=== PATIENT | male | born 1995 | race Caucasian/White ===

== ENCOUNTER 2018-07-01 14:33 | Inpatient (IN) | payer OTHER ==
[2018-07-01 16:41] VITALS: BMI 27.8
--- NOTE | 2018-07-01 18:31 | HP ---
CIWA Score - CIWA Score Nausea/Vomitin Muscle Tremors: 2 Anxiety: 4-Mod. Anxious/Guarded Agitation: 1-Slight > Activity Paroxysmal Sweats: 4-Forehead w/Sweat Beads Orientation: 0-Oriented Tacttile Disturbances: 1-Very Mild Itch/Numbness Auditory Disturbances: 0-None Visual Disturbances: 0-None Headache: 0-None Present CIWA-Ar Total Score: 15 Admission ROS S - HPI Chief Complaint: " I need help" benzodiazepine withdrawal symptoms Allergies/Adverse Reactions: Allergies Allergy/AdvReac Type Severity Reaction Status Date / Time acetaminophen Allergy Verified 07/01/18 18:17 History of Present Illness: 22 yo male with hx of nicotine, opioid, Xanax, marijuana dependence is here seeking detox. Patient is linked to Suboxone program: [facility] [address] Delmar Lira. PMHX: ADHD, anxiety, depression, borderline personality disorder. Denies suicidal / homicidal ideation or hx suicide attempt. Reports was in [facility] ED one week ago for panic attack after loosing his place of residence, was treated with 2mg of Ativan. Reports suffered benzo withdrawal seizure this past Saturday06/29/18, and was treated at [facility]. Reports longest period of sobriety Sep 2017 - January 2018. Denies any legal troubles at this time. Reference #: [id number] Others' Prescriptions Patient Name: Rosalino Dominique Date: 1995 Address: [address] [place] [address] Sex: Male Rx Written Rx Dispensed Drug Quantity Days Supply Prescriber Name 06/10/2018 06/10/2018 suboxone 8 mg-2 mg sl film 45 15 Delmar Webb MD 06/10/2018 06/10/2018 dextroamp-amphetamin 15 mg tab 30 30 Delmar Webb MD 05/08/2018 05/08/2018 dextroamp-amphetamin 10 mg tab 30 30 Delmar Webb MD 04/18/2018 05/01/2018 suboxone 8 mg-2 mg sl film 45 15 Delmar Webb MD 04/18/2018 04/21/2018 zubsolv 8.6-2.1 mg tablet sl 45 15 Delmar Webb MD 04/01/2018 04/03/2018 dextroamp-amphetamin 10 mg tab 30 30 Lira Lira Delmar Orona MD 03/06/2018 03/06/2018 dextroamp-amphetamin 10 mg tab 30 30 Lira LiraDelmar MD 02/28/2018 02/28/2018 suboxone 8 mg-2 mg sl film 45 15 Lira LiraDelmar MD 02/11/2018 02/11/2018 lorazepam 1 mg tablet 15 15 Lira Lira , Delmar Orona MD 01/30/2018 02/04/2018 dextroamp-amphetamine 5 mg tab 60 30 Lira LiraDelmar MD 01/28/2018 02/03/2018 zubsolv 8.6-2.1 mg tablet sl 45 15 Lira Lira, Delmar Orona MD 01/21/2018 01/27/2018 dextroamp-amphetamine 5 mg tab 20 20 Lira Lira Delmar Orona MD 01/17/2018 01/21/2018 zubsolv 8.6-2.1 mg tablet sl 45 15 Lira Lira, Delmar Orona MD 01/14/2018 01/14/2018 lorazepam 1 mg tablet 15 15 Lira Lira Delmar MD 01/07/2018 01/08/2018 zubsolv 8.6-2.1 mg tablet sl 30 15 Lira LiraDelmar MD 12/31/2017 12/31/2017 lorazepam 1 mg tablet 15 15 Lira Lira Delmar MD 12/31/2017 12/31/2017 clonazepam 1 mg tablet 60 30 Jethro Draper MD 12/26/2017 12/28/2017 zubsolv 5.7-1.4 mg tablet sl 45 15 Lira LiraDelmar MD 12/10/2017 12/10/2017 lorazepam 1 mg tablet 10 10 Lira Lira Delmar MD 12/03/2017 12/03/2017 clonazepam 1 mg tablet 60 30 Jethro Draper MD 11/24/2017 11/24/2017 tramadol hcl 50 mg tablet 3 1 Donal, Gibbi PA 11/22/2017 11/22/2017 clonazepam 0.5 mg tablet 90 30 Jethro Draper MD Patient Name: Rosalino Dominique Date: 1995 Address: [address] [place] [address] Sex: Male Rx Written Rx Dispensed Drug Quantity Days Supply Prescriber Name 12/24/2017 12/24/2017 zubsolv 2.9-0.71 mg tablet sl 18 3 Delmar Webb MD 12/20/2017 12/23/2017 zubsolv 2.9-0.71 mg tablet sl 12 4 Delmar Webb MD 12/17/2017 12/18/2017 lorazepam 1 mg tablet 10 30 Delmar Webb MD Exam Limitations: No Limitations - Ebola screening Have you traveled outside of the country in the last 21 days: No (N) Have you had contact with anyone from an Ebola affected area: No Have you been sick,other than usual withdrawal symptoms: No Do you have a fever: No - Review of Systems Constitutional: Diaphoresis, Loss of Appetite, Changes in sleep, Unintentional Wgt. Loss EENT: reports: No Symptoms Reported Respiratory: reports: No Symptoms reported Cardiac: reports: No Symptoms Reported GI: reports: Nausea, Poor Appetite, Poor Fluid Intake : reports: No Symptoms Reported Musculoskeletal: reports: No Symptoms Reported Integumentary: reports: No Symptoms Reported Neuro: reports: Numbness (neuropathy left ankle), Dizziness Endocrine: reports: Increased Thirst Hematology: reports: No Symptoms Reported Psychiatric: reports: Orientated x3, Anxious, Depressed Other Systems: Reviewed and Negative Patient History - Patient Medical History Hx Anemia: No Hx Asthma: No Hx Chronic Obstructive Pulmonary Disease (COPD): No Hx Cancer: No Hx Cardiac Disorders: No Hx Congestive Heart Failure: No Hx Hypertension: No Hx Hypercholesterolemia: No Hx Pacemaker: No HX Cerebrovascular Accident: No Hx Seizures: No Hx Dementia: No Hx Diabetes: No Hx Gastrointestinal Disorders: No Hx Liver Disease: No Hx Genitourinary Disorders: No Hx Sexually Transmitted Disorders: No Hx Renal Disease (ESRD): No Hx Thyroid Disease: No Hx Human Immunodeficiency Virus (HIV): No Hx Hepatitis C: No Hx Depression: Yes Hx Suicide Attempt: No Hx Bipolar Disorder: No Hx Schizophrenia: No - Patient Surgical History Past Surgical History: No - PPD History Previous Implant?: No Documented Results: Negative w/o proof PPD to be Administered?: Yes - Smoking Cessation Smoking history: Current every day smoker Have you smoked in the past 12 months: Yes Aproximately how many cigarettes per day: 2 Hx Chewing Tobacco Use: No Initiated information on smoking cessation: Yes 'Breaking Loose' booklet given: 07/01/18 - Substance & Tx. History Hx Alcohol Use: No Hx Substance Use: Yes Substance Use Type: Tranquilizers Hx Substance Use Treatment: No - Substances Abused Alprazolam (Xanax) Route: Oral Frequency: Daily Amount used: 5 tabs Age of first use: 20 Date of Last Use: 06/29/18 Family Disease History - Family Disease History Family Disease History: Diabetes: Mother (alive ) Admission Physical Exam [facility] - Vital Signs Vital Signs: Vital Signs - 24 hr 07/01/18 16:39 Temperature 99.0 F Pulse Rate 105 H Respiratory 20 Rate Blood Pressure 134/78 - Physical General Appearance: Yes: Mild Distress, Sweating, Anxious HEENTM: Yes: EOMI, Hearing grossly Normal, Normal ENT Inspection, Normocephalic , Normal Voice, BOO, Pharynx Normal, Tm's normal Respiratory: Yes: Chest Non-Tender, Lungs Clear, Normal Breath Sounds, No Respiratory Distress, No Accessory Muscle Use Neck: Yes: Within Normal Limits Breast: Yes: Breast Exam Deferred Cardiology: Yes: Regular Rhythm, Regular Rate Abdominal: Yes: Normal Bowel Sounds, Non Tender, Flat, Soft Genitourinary: Yes: Within Normal Limits Back: Yes: Normal Inspection Musculoskeletal: Yes: full range of Motion, Gait Steady, Pelvis Stable Extremities: Yes: Normal Capillary Refill, Normal Inspection, Normal Range of Motion Neurological: Yes: management professionals II-XII NML intact, Fully Oriented, Alert, Motor Strength 5/5, Depressed Affect Integumentary: Yes: Normal Color, Warm, Clammy Lymphatic: Yes: Within Normal Limits Cleared for Admission [facility] - Detox or Rehab [facility] Level of Care: Medically Managed Detox Regimen/Protocol: Valium [facility] Breath Alcohol Content Breath Alcohol Content: 0 Urine Drug Screen - Results Drug Screen Negative: No Urine Drug Screen Results: THC-Marijuana, BZO-Benzodiazepines, BUP-Suboxone
[2018-07-01] MEDS ORDERED: hydrOXYzine PAMOATE 50 MG CAPSULE (FP) PO PRN (18:41)
[2018-07-01] MEDS ORDERED: guaiFENesin/D-METHORPHAN HB 10 ML UNIT-DOSE CUPS PO PRN (18:41)
[2018-07-01] MEDS ORDERED: MENTHOL/PHENOL 1 EACH UD MM PRN (18:41)
[2018-07-01] MEDS ORDERED: LOPERAMIDE HCL 2 MG CAPSULE PO PRN (18:41)
[2018-07-01] MEDS ORDERED: diazePAM 5 MG TABLET PO ONE (18:41)
[2018-07-01] MEDS ORDERED: MAGNESIUM CITRATE 300 ML BOTTLE PO PRN (18:41)
[2018-07-01] MEDS ORDERED: MAG HYDROX/AL HYDROX/SIMETH 30 ML UNIT-DOSE CUP PO PRN (18:41)
[2018-07-01] MEDS ORDERED: NICOTINE POLACRILEX 2 MG GUM BUC PRN (18:41)
[2018-07-01] MEDS ORDERED: IBUPROFEN 400 MG TABLET (FP) PO PRN (18:41)
[2018-07-01] MEDS ORDERED: MAGNESIUM HYDROX 2400MG/30ML ORAL SUSPENSION 30 ML CUP PO PRN (18:41)
[2018-07-01] MEDS ORDERED: P-EPHED 60MG/TRIPROLIDI 2.5MG TABLET PO PRN (18:41)
[2018-07-01] MEDS: THIAMINE HCL 100 MG TABLET (FP) PO SCH (21:27)
[2018-07-01] MEDS: BUPRENORPHINE/NALOXONE 8 MG/2 MG FILM PACKET SL SCH (21:28)
[2018-07-01] MEDS: diazePAM 5 MG TABLET PO SCH (22:20)
[2018-07-01] MEDS: MELATONIN 5 MG TABLETS PO PRN (23:41)
[2018-07-02] MEDS: diazePAM 5 MG TABLET PO PRN ×3 (02:24→17:13)
[2018-07-02] MEDS: diazePAM 5 MG TABLET PO SCH ×3 (05:37→22:22)
[2018-07-02] MEDS: BUPRENORPHINE/NALOXONE 8 MG/2 MG FILM PACKET SL SCH ×3 (05:37→22:22)
[2018-07-02 10:33] LABS: HEMATOCRIT 40.6 % (35.4-49); HEMOGLOBIN 13.1 GM/dL (11.7-16.9); MCH 28.4 pg (25.7-33.7); MCHC 32.3 g/dl (32.0-35.9); MEAN PLT VOLUME 8.5 fl (7.5-11.1); PLATELET COUNT 241 K/MM3 (134-434); RBC 4.61 M/mm3 (4.00-5.60); RDW 13.8 % (11.9-15.9); WHITE BLOOD COUNT 7.8 K/mm3 (4.0-10.0)
--- NOTE | 2018-07-02 10:47 | EKG ---
Test Reason : Blood Pressure : / mmHG Vent. Rate : 095 BPM Atrial Rate : 095 BPM P-R Int : 150 ms QRS Dur : 096 ms QT Int : 374 ms P-R-T Axes : 046 036 008 degrees QTc Int : 469 ms NORMAL SINUS RHYTHM NORMAL ECG NO PREVIOUS ECGS AVAILABLE Confirmed by PHYLLIS GUAJARDO, JOHN ([id number]) on 07/02/2018 10:47:34 AM Referred By: Confirmed By:JOHN FERGUSON MD
[2018-07-02 10:59] LABS: ALBUMIN 3.6 g/dl (3.4-5.0); ALK PHOS 57 U/L (45-117); ANION GAP 8 MMOL/L (8-16); BILIRUBIN,TOTAL 0.7 mg/dL (0.2-1); BLOOD UREA NITROGEN 8 mg/dL (7-18); CALCIUM 8.9 mg/dL (8.5-10.1); CHLORIDE 105 mmol/L (98-107); CO2 31 mmol/L (21-32); CREATININE 0.7 mg/dL (0.55-1.3); GLUCOSE,RANDOM 90 mg/dL (74-106); POTASSIUM 3.9 mmol/L (3.5-5.1); SGOT/AST 18 U/L (15-37); SGPT/ALT 27 U/L (13-61); SODIUM 144 mmol/L (136-145); TOT PROT 6.1 g/dl (6.4-8.2)
[2018-07-02] MEDS: NICOTINE 14 MG/24 HOURS TOPICAL PATCH TD SCH (11:03)
[2018-07-02] MEDS: PRENATAL VITAMINS W/ FOLIC ACID TABLET (FP) PO SCH (11:05)
--- NOTE | 2018-07-02 11:29 | PN ---
S CIWA - CIWA Score Nausea/Vomitin Muscle Tremors: 4-Moderate,w/Arms Extend Anxiety: 4-Mod. Anxious/Guarded Agitation: 4-Moderately Restless Paroxysmal Sweats: 3 Orientation: 0-Oriented Tacttile Disturbances: 0-None Auditory Disturbances: 0-None Visual Disturbances: 0-None Headache: 0-None Present CIWA-Ar Total Score: 17 [facility] Progress Note (SOAP) Subjective: Sweating, nausea, interrupted sleep Objective: 07/02/18 11:28 Last Vital Signs Temp Pulse Resp BP Pulse Ox 97.1 F L 76 18 126/84 07/02/18 10:45 07/02/18 10:45 07/02/18 10:45 07/02/18 10:45 Laboratory Tests 07/02/18 07/02/18 07:00 07:00 WBC 7.8 RBC 4.61 Hgb 13.1 Hct 40.6 MCV 88.0 MCH 28.4 MCHC 32.3 RDW 13.8 Plt Count 241 MPV 8.5 Sodium 144 Potassium 3.9 Chloride 105 Carbon Dioxide 31 Anion Gap 8 BUN 8 Creatinine 0.7 Creat Clearance w eGFR > 60 Random Glucose 90 Calcium 8.9 Total Bilirubin 0.7 AST 18 ALT 27 Alkaline Phosphatase 57 Total Protein 6.1 L Albumin 3.6 Labs reviewed Assessment: 07/02/18 11:28 Withdrawal symptoms Plan: Continue detox Encouraged PO water intake
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
[2018-07-02 20:57] LABS: URINE APPEARANCE CLEAR; URINE BILIRUBIN NEGATIVE (<2.0 mg/dL); URINE COLOR YELLOW; URINE GLUCOSE (UA) NEGATIVE (NEGATIVE); URINE KETONE NEGATIVE (NEGATIVE); URINE LEUK ESTERASE 1+ (NEGATIVE); URINE NITRITE NEGATIVE (NEGATIVE); URINE PROTEIN NEGATIVE (NEGATIVE); URINE UROBILINOGEN 4.0 E.U/dl mg/dL (0.2-1.0)
[2018-07-02 21:11] LABS: EPI CELLS RARE /HPF (FEW); URINE MUCUS RARE
[2018-07-02] MEDS: THIAMINE HCL 100 MG TABLET (FP) PO SCH (22:22)
[2018-07-02] MEDS: MELATONIN 5 MG TABLETS PO PRN (22:26)
[2018-07-03] MEDS: diazePAM 5 MG TABLET PO PRN ×3 (01:50→17:22)
[2018-07-03] MEDS: BUPRENORPHINE/NALOXONE 8 MG/2 MG FILM PACKET SL SCH ×3 (05:34→22:35)
[2018-07-03] MEDS: FLUoxetine HCL 20 MG CAPSULE (FP) PO SCH (10:06)
[2018-07-03] MEDS: diazePAM 5 MG TABLET PO SCH ×2 (10:06→22:35)
[2018-07-03] MEDS: PRENATAL VITAMINS W/ FOLIC ACID TABLET (FP) PO SCH (10:07)
[2018-07-03] MEDS: NICOTINE 14 MG/24 HOURS TOPICAL PATCH TD SCH (10:07)
--- NOTE | 2018-07-03 11:40 | PN ---
S CIWA - CIWA Score Nausea/Vomitin-Mild Nausea/No Vomiting Muscle Tremors: 3 Anxiety: 3 Agitation: 3 Paroxysmal Sweats: 3 Orientation: 0-Oriented Tacttile Disturbances: 0-None Auditory Disturbances: 0-None Visual Disturbances: 0-None Headache: 1-Very Mild CIWA-Ar Total Score: 14 S Progress Note (SOAP) Subjective: Sweating, tremor, interrupted sleep. Patient c/o right underarm swelling painful to touch. He denies shaving his armpit. Objective: 07/03/18 11:35 Last Vital Signs Temp Pulse Resp BP Pulse Ox 96.6 F L 74 20 118/90 07/03/18 10:36 07/03/18 10:36 07/03/18 10:36 07/03/18 10:36 PE: Skin: right armpit noted with moderately erythemic closed, semisolid papular growth; no drainage or discharge, no increased warmth Laboratory Tests 07/02/18 07/02/18 07/02/18 07:00 07:00 07:00 WBC 7.8 RBC 4.61 Hgb 13.1 Hct 40.6 MCV 88.0 MCH 28.4 MCHC 32.3 RDW 13.8 Plt Count 241 MPV 8.5 Sodium 144 Potassium 3.9 Chloride 105 Carbon Dioxide 31 Anion Gap 8 BUN 8 Creatinine 0.7 Creat Clearance w eGFR > 60 Random Glucose 90 Calcium 8.9 Total Bilirubin 0.7 AST 18 ALT 27 Alkaline Phosphatase 57 Total Protein 6.1 L Albumin 3.6 Urine Color Urine Appearance Urine pH Ur Specific [place] Urine Protein Urine Glucose (UA) Urine Ketones Urine Blood Urine Nitrite Urine Bilirubin Urine Urobilinogen Ur Leukocyte Esterase Urine WBC (Auto) Urine RBC (Auto) Ur Epithelial Cells Urine Mucus RPR Titer Nonreactive HIV 1&2 Antibody Screen HIV P24 Antigen 07/02/18 07/02/18 07:00 13:40 WBC RBC Hgb Hct MCV MCH MCHC RDW Plt Count MPV Sodium Potassium Chloride Carbon Dioxide Anion Gap BUN Creatinine Creat Clearance w eGFR Random Glucose Calcium Total Bilirubin AST ALT Alkaline Phosphatase Total Protein Albumin Urine Color Yellow Urine Appearance Clear Urine pH 6.0 Ur Specific [place] 1.014 Urine Protein Negative Urine Glucose (UA) Negative Urine Ketones Negative Urine Blood Negative Urine Nitrite Negative Urine Bilirubin Negative Urine Urobilinogen 4.0 e.u/dl Ur Leukocyte Esterase 1+ H Urine WBC (Auto) 8 Urine RBC (Auto) 1 Ur Epithelial Cells Rare Urine Mucus Rare RPR Titer HIV 1&2 Antibody Screen Negative HIV P24 Antigen Negative Labs reviewed: abnormal UA Assessment: 07/03/18 11:38 Withdrawal symptoms Noted with right underarm abscess and abnormal UA Plan: Continue detox Right underarm abscess, closed: keflex 500mg PO q12hr x 10 days, bacitracin ointment to affected area bid, warm compress prn to affected area Abnormal UA: encouraged PO water intake, repeat UA
[2018-07-03] MEDS: CEPHALEXIN MONOHYDRATE 500 MG CAPSULE (UD) PO SCH ×2 (13:53→22:36)
[2018-07-03] MEDS: BACITRACIN 0.9 GM PACKET TP SCH ×2 (13:53→22:35)
--- NOTE | 2018-07-03 18:37 | PN ---
S Progress Note Note: Psychiatric nurse practitioner note: Patient reports poor sleep. States he has taken seroquel in the past with favorable effect. Seroquel 50mg qhs ordered. Verbal consent given. Prescriptions will not be sent to patient's pharmacy.
[2018-07-03 18:56] LABS: URINE APPEARANCE CLEAR; URINE BILIRUBIN NEGATIVE (<2.0 mg/dL); URINE COLOR LTYELLOW; URINE GLUCOSE (UA) NEGATIVE (NEGATIVE); URINE KETONE NEGATIVE (NEGATIVE); URINE LEUK ESTERASE NEGATIVE (NEGATIVE); URINE NITRITE NEGATIVE (NEGATIVE); URINE PROTEIN NEGATIVE (NEGATIVE)
[2018-07-03] MEDS: QUEtiapine FUMARATE 50 MG TABLET PO SCH (22:35)
[2018-07-03] MEDS: THIAMINE HCL 100 MG TABLET (FP) PO SCH (22:36)
[2018-07-04] MEDS: diazePAM 5 MG TABLET PO PRN ×3 (05:33→17:25)
[2018-07-04] MEDS: BUPRENORPHINE/NALOXONE 8 MG/2 MG FILM PACKET SL SCH ×3 (05:33→22:23)
[2018-07-04] MEDS: BACITRACIN 0.9 GM PACKET TP SCH ×2 (10:08→22:23)
[2018-07-04] MEDS: diazePAM 5 MG TABLET PO SCH ×2 (10:08→22:24)
[2018-07-04] MEDS: PRENATAL VITAMINS W/ FOLIC ACID TABLET (FP) PO SCH (10:08)
[2018-07-04] MEDS: NICOTINE 14 MG/24 HOURS TOPICAL PATCH TD SCH (10:08)
[2018-07-04] MEDS: FLUoxetine HCL 20 MG CAPSULE (FP) PO SCH (10:08)
[2018-07-04] MEDS: CEPHALEXIN MONOHYDRATE 500 MG CAPSULE (UD) PO SCH ×2 (10:08→22:24)
--- NOTE | 2018-07-04 13:49 | PN ---
[facility] Progress Note (SOAP) Subjective: Sweating, anxious Objective: 07/04/18 13:45 Last Vital Signs Temp Pulse Resp BP Pulse Ox 98.5 F 91 H 20 142/89 07/04/18 09:54 07/04/18 09:54 07/04/18 09:54 07/04/18 09:54 Laboratory Tests 07/02/18 07/02/18 07/02/18 07:00 07:00 07:00 WBC 7.8 RBC 4.61 Hgb 13.1 Hct 40.6 MCV 88.0 MCH 28.4 MCHC 32.3 RDW 13.8 Plt Count 241 MPV 8.5 Sodium 144 Potassium 3.9 Chloride 105 Carbon Dioxide 31 Anion Gap 8 BUN 8 Creatinine 0.7 Creat Clearance w eGFR > 60 Random Glucose 90 Calcium 8.9 Total Bilirubin 0.7 AST 18 ALT 27 Alkaline Phosphatase 57 Total Protein 6.1 L Albumin 3.6 Urine Color Urine Appearance Urine pH Ur Specific [place] Urine Protein Urine Glucose (UA) Urine Ketones Urine Blood Urine Nitrite Urine Bilirubin Urine Urobilinogen Ur Leukocyte Esterase Urine WBC (Auto) Urine RBC (Auto) Ur Epithelial Cells Urine Mucus RPR Titer Nonreactive HIV 1&2 Antibody Screen HIV P24 Antigen 07/02/18 07/02/18 07/03/18 07:00 13:40 14:10 WBC RBC Hgb Hct MCV MCH MCHC RDW Plt Count MPV Sodium Potassium Chloride Carbon Dioxide Anion Gap BUN Creatinine Creat Clearance w eGFR Random Glucose Calcium Total Bilirubin AST ALT Alkaline Phosphatase Total Protein Albumin Urine Color Yellow [place] Urine Appearance Clear Clear Urine pH 6.0 7.0 Ur Specific [place] 1.014 1.009 L Urine Protein Negative Negative Urine Glucose (UA) Negative Negative Urine Ketones Negative Negative Urine Blood Negative Negative Urine Nitrite Negative Negative Urine Bilirubin Negative Negative Urine Urobilinogen 4.0 e.u/dl 2.0 Ur Leukocyte Esterase 1+ H Negative Urine WBC (Auto) 8 Urine RBC (Auto) 1 Ur Epithelial Cells Rare Urine Mucus Rare RPR Titer HIV 1&2 Antibody Screen Negative HIV P24 Antigen Negative Labs reviewed Assessment: 07/04/18 13:46 Withdrawal symptoms Plan: Continue detox Encouraged PO water intake
[2018-07-04] MEDS: QUEtiapine FUMARATE 50 MG TABLET PO SCH (22:24)
[2018-07-04] MEDS: THIAMINE HCL 100 MG TABLET (FP) PO SCH (22:24)
[2018-07-05] MEDS: BUPRENORPHINE/NALOXONE 8 MG/2 MG FILM PACKET SL SCH (05:21)
[2018-07-05 06:39] VITALS: BP 105/68; PULSE 58; TEMP 97.9
[2018-07-05] MEDS: CEPHALEXIN MONOHYDRATE 500 MG CAPSULE (UD) PO SCH (09:19)
[2018-07-05] MEDS: PRENATAL VITAMINS W/ FOLIC ACID TABLET (FP) PO SCH (09:20)
[2018-07-05] MEDS: NICOTINE 14 MG/24 HOURS TOPICAL PATCH TD SCH (09:20)
[2018-07-05] MEDS: FLUoxetine HCL 20 MG CAPSULE (FP) PO SCH (09:20)
[2018-07-05] MEDS: BACITRACIN 0.9 GM PACKET TP SCH (09:22)
[2018-07-05] MEDS ORDERED: diazePAM 5 MG TABLET PO SCH (10:00)
--- NOTE | 2018-07-05 13:12 | DS ---
[facility] Detox Discharge Summary Admission Date: 07/01/18 Discharge Date: 07/05/18 - History Present History: Sedative Dependence - Physical Exam Results Vital Signs: Vital Signs Temperature 97.9 F 07/05/18 06:38 Pulse Rate 58 L 07/05/18 06:38 Respiratory Rate 18 07/05/18 06:38 Blood Pressure 105/68 07/05/18 06:38 O2 Sat by Pulse Oximetry (%) Pertinent Admission Physical Exam Findings: PATIENT TOLERATED DETOX REGIMEN WITHOUT ADVERSE EVENT. PATIENT D/C TO CRISIS CENTER AND THEN TO ATTEND [facility]. PATIENT MEDICALLY STABLE, ALERT AND ORIENTED X 3. SKIN WARM AND DRY. PATIENT DENIES SI/HI. PATIENT ENCOURAGED TO FOLLOW UP WITH PCP AND CRISIS CENTER UPON DISCHARGE TO PREVENT RELAPSE. PATIENT EDUCATED TO SEEK MEDICAL ATTENTION IF WITHDRAWAL SYMPTOMS OCCUR. D/C INSTRUCTIONS PROVIDED BY STAFF AND GIVEN TO PATIENT. - Treatment Hospital Course: Detox Protocol Followed, Detoxed Safely, Responded well, Discharged Condition Good, Rehab Referral Accepted Patient has Accepted a Rehab Referral to: [facility]IS CENTER - Medication Discharge Medications: Ambulatory Orders Dextroamphetamine/Amphetamine [Dextroamp-Amphetamin 15 mg Tab] 15 mg PO DAILY Fluoxetine HCl [Prozac] 40 mg PO DAILY 07/01/18 Lamotrigine 100 mg PO DAILY 07/01/18 Buprenorphine/Naloxone [Suboxone 8Mg/2Mg Sl Film -] 8 mg SL TID #30 film MDD 24mg 07/05/18 - AMA Did Patient Leave Against Medical Advice: No
== END 2018-07-05 09:37 | disposition home or self-care (01) | DRG 773 ==
LOC: YASAS 14:33 → Y3N 18:06
PROC: HZ2ZZZZ Detoxification Services for Substance Abuse Treatment (ICD-10-PCS; principal; 2018-07-01)
DX: F13.230 Sedative, hypnotic or anxiolytic dependence with withdrawal, uncomplicated (principal); F12.20 Cannabis dependence, uncomplicated; F11.20 Opioid dependence, uncomplicated; F17.210 Nicotine dependence, cigarettes, uncomplicated; F32.9 Major depressive disorder, single episode, unspecified; F90.9 Attention-deficit hyperactivity disorder, unspecified type; F60.9 Personality disorder, unspecified; F19.24 Other psychoactive substance dependence with psychoactive substance-induced mood disorder; R82.90 Unspecified abnormal findings in urine; L02.411 Cutaneous abscess of right axilla
CPT/HCPCS: 36415; 80053; 81003; 81015; 85027; 86593; 87389; 93005; 93010

== ENCOUNTER 2020-07-04 10:25 | Inpatient (IN) | payer OTHER ==
[2020-07-04 10:47] VITALS: BMI 28.6
--- NOTE | 2020-07-04 10:50 | BHS.RME ---
2019 N Coronavirus Screen - COVID-19 Screening Questions Dx of COVID-19 or had a positive test in the last 4 weeks?: No Contact with known/suspected COVID patient in last 14 days?: No Any of these symptoms or contact with someone who has?: None Traveled domestically/internationally in the last 14 days?: No Screen score: 0 Screen result: Further Evaluation Substance Use & Tx History - Substance Use History Heroin Substance amount: 5 bags Frequency of use: Daily Substance route: Injection (ex: intravenous or skin popping) Date of Last Use: 07/01/20 (started age 22) Cocaine- Powder Substance amount: 1 bag Frequency of use: Daily Substance route: Injection (ex: intravenous or skin popping) Date of Last Use: 07/03/20 (started age 22) Marijuana/Hashish Substance amount: 3 grams Frequency of use: Daily Substance route: Smoking Date of Last Use: 07/04/20 (started age 16) - Last Treatment Date of last treatment: 2018 completed Treatment type: Substance Use Disorder ([facility]) Where was last treatment: Detox Physical/Psych/Mental Status - Behavior General Behavior: Increased activity (restlessness, agitation) Eye Contact: Normal Other Behaviors: Stereotypes - Cooperativeness Cooperativeness: Cooperative - Thinking Thought Processes: Tight, Logical, Goal Directed - Physical Health Problems Is patient presently having any pain?: No Does patient presently have any injuries (include location): No Does patient currently have a fever: No Is patient : No COWS - Scale Resting Pulse: 1= HI 81-100 Sweatin= Beads of Sweat on Face Restless Observation: 3= Extraneous Movement Pupil Size: 2= Moderately Dilated Bone or Joint Aches: 4=Acute Joint/Muscle Pain Runny Nose/ Eye Tearin= Runny Nose/Eyes GI Upset > 30mins: 2= Nausea/Diarrhea Tremor Observation: 2= Slight Tremor Visible Yawning Observation: 2= >3x During Session Anxiety or Irritability: 2=Irritable/Anxious Goose Flesh Skin: 3=Piloerection COWS Score: 26
--- NOTE | 2020-07-04 11:38 | HP ---
COWS - Scale Resting Pulse: 1= [place] 81-100 Sweatin= Beads of Sweat on Face Restless Observation: 3= Extraneous Movement Pupil Size: 2= Moderately Dilated Bone or Joint Aches: 4=Acute Joint/Muscle Pain Runny Nose/ Eye Tearin= Runny Nose/Eyes GI Upset > 30mins: 2= Nausea/Diarrhea Tremor Observation: 2= Slight Tremor Visible Yawning Observation: 2= >3x During Session Anxiety or Irritability: 2=Irritable/Anxious Goose Flesh Skin: 3=Piloerection COWS Score: 26 CIWA Score - Admission Criteria OASAS Guidelines: Admission for Medically Managed Detox: Requires at least one of the followin. CIWA greater than 12 2. Seizures within the past 24 hours 3. Delirium tremens within the past 24 hours 4. Hallucinations within the past 24 hours 5. Acute intervention needed for co occurring medical disorder 6. Acute intervention needed for co occurring psychiatric disorder 7. Severe withdrawal that cannot be handled at a lower level of care (continued vomiting, continued diarrhea, abnormal vital signs) requiring intravenous medication and/or fluids 8. Admitting History and Physical - Admission Chief Complaint: Mr. Dominique is a 24 yo man who presents to [facility] requesting detox admission for opioid use disorder. History of Present Illness: Mr. Dominique is a 24 yo man who presents to [facility] requesting detox admission for opioid use disorder. He was last here in 2018 for detox. PMH: Epilepsy, first seizure age 16, has about 4-5 seizures per year, several associated with intoxication, tx with Keppra and ? sublingual clonazepam PSH; left testicular hydrocoel removal Psych: depression, ADHD: Prozac, Adderal, Wellbutrin SOC: homeless on streets Legal: none Substance Use History Heroin Substance amount: 5 bags Frequency of use: Daily Substance route: Injection (ex: intravenous or skin popping) Date of Last Use: 07/01/20 (started age 22) No ODs Yes: has narcan Cocaine- Powder Substance amount: 1 bag Frequency of use: Daily Substance route: Injection (ex: intravenous or skin popping) Date of Last Use: 07/03/20 (started age 22) Marijuana/Hashish Substance amount: 3 grams Frequency of use: Daily Substance route: Smoking Date of Last Use: 07/04/20 (started age 16) - Last Treatment Date of last treatment: 2018 completed Treatment type: Substance Use Disorder ([facility]IL[facility]) Where was last treatment: [facility] UDS: THC COWS: 26 History Source: Patient, Caregiver - Smoking History Smoking history: Current every day smoker Have you smoked in the past 12 months: Yes Aproximately how many cigarettes per day: 1 - Alcohol/Substance Use Hx Alcohol Use: No Admission ROS [facility] - HPI Allergies/Adverse Reactions: Allergies Allergy/AdvReac Type Severity Reaction Status Date / Time acetaminophen Allergy Verified 07/04/20 10:54 Exam Limitations: No Limitations - Ebola screening Have you traveled outside of the country in the last 21 days: No Have you been sick,other than usual withdrawal symptoms: No Do you have a fever: No - Review of Systems Constitutional: No Symptoms Reported EENT: reports: No Symptoms Reported Respiratory: reports: No Symptoms reported Cardiac: reports: No Symptoms Reported GI: reports: No Symptoms Reported : reports: No Symptoms Reported Musculoskeletal: reports: Back Pain Integumentary: reports: No Symptoms Reported Neuro: reports: No Symptoms reported Hematology: reports: No Symptoms Reported Psychiatric: reports: Anxious (hx of self inflicted cutting wrists) Patient History - Patient Medical History Hx Anemia: No Hx Asthma: No Hx Chronic Obstructive Pulmonary Disease (COPD): No Hx Cancer: No Hx Cardiac Disorders: No Hx Congestive Heart Failure: No Hx Hypertension: No Hx Hypercholesterolemia: No Hx Pacemaker: No HX Cerebrovascular Accident: No Hx Seizures: No Hx Dementia: No Hx Diabetes: No Hx Gastrointestinal Disorders: No Hx Liver Disease: No Hx Genitourinary Disorders: No Hx Sexually Transmitted Disorders: No Hx Renal Disease (ESRD): No Hx Thyroid Disease: No Hx Human Immunodeficiency Virus (HIV): No Hx Hepatitis C: No Hx Depression: Yes Hx Suicide Attempt: No Hx Bipolar Disorder: No Hx Schizophrenia: No - Patient Surgical History Past Surgical History: Yes Hx Neurologic Surgery: No Hx Cataract Extraction: No Hx Cardiac Surgery: No Hx Lung Surgery: No Hx Breast Surgery: No Hx Breast Biopsy: No Hx Abdominal Surgery: No Hx Appendectomy: No Hx Cholecystectomy: No Hx Genitourinary Surgery: No Hx Section: No Hx Orthopedic Surgery: No Other Surgical History: Cyst removed from L testicle in 01/02 - PPD History Previous Implant?: Yes Documented Results: Negative w/o proof Implanted On Prior R Admission?: Yes Date: 07/03/18 - Smoking Cessation Smoking history: Current every day smoker Have you smoked in the past 12 months: Yes Aproximately how many cigarettes per day: 1 Hx Chewing Tobacco Use: No Initiated information on smoking cessation: Yes 'Breaking Loose' booklet given: 07/04/20 Admission Physical Exam [facility] - Vital Signs Vital Signs: Vital Signs - 24 hr 07/04/20 10:45 Temperature 97.6 F Pulse Rate 90 Respiratory 12 Rate Blood Pressure 124/85 - Physical General Appearance: Yes: Nourished, Appropriately Dressed, Tremorous HEENTM: Yes: EOMI, Hearing grossly Normal, Normocephalic, Normal Voice, Other (superficial scrape left elbow, suture left forehead recent fall 2 weeks ago, pt states other sutures already removed from forehead) Respiratory: Yes: Lungs Clear Neck: Yes: Supple Cardiology: Yes: Regular Rhythm, Regular Rate Abdominal: Yes: Normal Bowel Sounds, Non Tender, Flat, Soft Genitourinary: Yes: Other (deferred) Back: Yes: Normal Inspection Musculoskeletal: Yes: Gait Steady Extremities: Yes: Normal Inspection, Non-Tender Neurological: Yes: Alert, Normal Response Integumentary: Yes: Other (above) - Diagnostic (1) Opioid withdrawal Current Visit: Yes Status: Acute (2) Epilepsy Current Visit: Yes Status: Acute (3) MDD (major depressive disorder) Current Visit: Yes Status: Chronic Comment: As per history. Cleared for Admission [facility] - Detox or Rehab [facility] Level of Care: Medically Managed Detox Regimen/Protocol: Methadone Breathalyzer - Breathalyzer Breathalyzer: 0 Urine Drug Screen - Test Device Lot number: [id number] Expiration date: 12/22/21 - Control Is test valid?: Yes - Results Drug screen NEGATIVE: No Urine drug screen results: THC-Marijuana Inpatient Rehab Admission - Rehab Decision to Admit Inpatient rehab admission?: No
[2020-07-04] MEDS ORDERED: METHADONE HCL 10 MG TABLET (FOR DETOX USE ONLY) PO ONE (11:41)
[2020-07-04] MEDS ORDERED: METHOCARBAMOL 500 MG TABLET PO PRN (11:41)
[2020-07-04] MEDS ORDERED: MAG HYDROX/AL HYDROX/SIMETH 30 ML UNIT-DOSE CUP PO PRN (11:41)
[2020-07-04] MEDS ORDERED: cloNIDine HCL 0.1 MG TABLET PO PRN (11:41)
[2020-07-04] MEDS ORDERED: MENTHOL/PHENOL 1 EACH UD MM PRN (11:41)
[2020-07-04] MEDS ORDERED: MAGNESIUM HYDROX 2400MG/30ML ORAL SUSPENSION 30 ML CUP PO PRN (11:41)
[2020-07-04] MEDS ORDERED: IBUPROFEN 400 MG TABLET (FP) PO PRN (11:41)
[2020-07-04] MEDS ORDERED: ONDANSETRON *ODT* 4 MG TABLET SL PRN (11:41)
[2020-07-04] MEDS ORDERED: BISMUTH SUBSALICYLATE 262 MG/15 ML BTL PO PRN (11:41)
[2020-07-04] MEDS ORDERED: NICOTINE POLACRILEX 2 MG GUM BUC PRN (11:41)
[2020-07-04] MEDS ORDERED: ACETAMINOPHEN 325 MG TABLET (FP) PO PRN ×2 (11:41)
[2020-07-04] MEDS ORDERED: MAGNESIUM CITRATE 300 ML BOTTLE PO PRN (11:41)
[2020-07-04] MEDS ORDERED: levETIRAcetam 250 MG TABLET PO SCH (12:00)
--- NOTE | 2020-07-04 13:41 | HP ---
COWS - Scale Resting Pulse: 1= [place] 81-100 Sweatin= Beads of Sweat on Face Restless Observation: 3= Extraneous Movement Pupil Size: 2= Moderately Dilated Bone or Joint Aches: 4=Acute Joint/Muscle Pain Runny Nose/ Eye Tearin= Runny Nose/Eyes GI Upset > 30mins: 2= Nausea/Diarrhea Tremor Observation: 2= Slight Tremor Visible Yawning Observation: 2= >3x During Session Anxiety or Irritability: 2=Irritable/Anxious Goose Flesh Skin: 3=Piloerection COWS Score: 26 CIWA Score - Admission Criteria OASAS Guidelines: Admission for Medically Managed Detox: Requires at least one of the followin. CIWA greater than 12 2. Seizures within the past 24 hours 3. Delirium tremens within the past 24 hours 4. Hallucinations within the past 24 hours 5. Acute intervention needed for co occurring medical disorder 6. Acute intervention needed for co occurring psychiatric disorder 7. Severe withdrawal that cannot be handled at a lower level of care (continued vomiting, continued diarrhea, abnormal vital signs) requiring intravenous medication and/or fluids 8. Admitting History and Physical - Smoking History Smoking history: Current every day smoker Have you smoked in the past 12 months: Yes Aproximately how many cigarettes per day: 1 - Alcohol/Substance Use Hx Alcohol Use: No Admission ROS [facility] - HPI Allergies/Adverse Reactions: Allergies Allergy/AdvReac Type Severity Reaction Status Date / Time acetaminophen Allergy Verified 07/04/20 10:54 - Ebola screening Have you traveled outside of the country in the last 21 days: No Have you been sick,other than usual withdrawal symptoms: No Do you have a fever: No Patient History - Patient Medical History Hx Anemia: No Hx Asthma: No Hx Chronic Obstructive Pulmonary Disease (COPD): No Hx Cancer: No Hx Cardiac Disorders: No Hx Congestive Heart Failure: No Hx Hypertension: No Hx Hypercholesterolemia: No Hx Pacemaker: No HX Cerebrovascular Accident: No Hx Seizures: No Hx Dementia: No Hx Diabetes: No Hx Gastrointestinal Disorders: No Hx Liver Disease: No Hx Genitourinary Disorders: No Hx Sexually Transmitted Disorders: No Hx Renal Disease (ESRD): No Hx Thyroid Disease: No Hx Human Immunodeficiency Virus (HIV): No Hx Hepatitis C: No Hx Depression: Yes Hx Suicide Attempt: No Hx Bipolar Disorder: No Hx Schizophrenia: No - Patient Surgical History Past Surgical History: Yes Hx Neurologic Surgery: No Hx Cataract Extraction: No Hx Cardiac Surgery: No Hx Lung Surgery: No Hx Breast Surgery: No Hx Breast Biopsy: No Hx Abdominal Surgery: No Hx Appendectomy: No Hx Cholecystectomy: No Hx Genitourinary Surgery: No Hx Section: No Hx Orthopedic Surgery: No Other Surgical History: Cyst removed from L testicle in 01/02 - PPD History Previous Implant?: Yes Documented Results: Negative w/o proof Implanted On Prior [facility] Admission?: Yes Date: 07/06/20 - Smoking Cessation Smoking history: Current every day smoker Have you smoked in the past 12 months: Yes Aproximately how many cigarettes per day: 1 Hx Chewing Tobacco Use: No Initiated information on smoking cessation: Yes Admission Physical Exam [facility] - Vital Signs Vital Signs: Vital Signs - 24 hr 07/04/20 07/04/20 10:45 12:20 Temperature 97.6 F 98.7 F Pulse Rate 90 80 Respiratory 12 18 Rate Blood Pressure 124/85 133/92 O2 Sat by Pulse 100 Oximetry (%) Breathalyzer - Breathalyzer Breathalyzer: 0 Urine Drug Screen - Test Device Lot number: [id number] Expiration date: 12/22/21 - Control Is test valid?: Yes - Results Drug screen NEGATIVE: No Urine drug screen results: THC-Marijuana
[2020-07-04] MEDS ORDERED: hydrOXYzine PAMOATE 25 MG CAPSULE (FP) PO SCH (14:00)
--- NOTE | 2020-07-04 14:27 | PN ---
[facility] Progress Note Note: 24 years old male was admitted on 07/04/20 for opiate withdrawal sx management upon arrival to [facility] spoke with counselor regarding suicidal ideation suicidal attempt by history overhead page Dr Waddell informed that mr martinez expressed suicidal ideation 1:1 close observation for suicidal ideation
[2020-07-04 14:41] LABS: POTASSIUM 4.2 mmol/L (3.5-5.1)
[2020-07-04 14:43] LABS: HEMATOCRIT 41.1 % (35.4-49); HEMOGLOBIN 13.5 GM/dL (11.7-16.9); MCH 30.5 pg (25.7-33.7); MCHC 32.8 g/dl (32.0-35.9); MEAN CELL VOLUME 92.8 fl (80-96); MEAN PLT VOLUME 8.7 fl (7.5-11.1); PLATELET COUNT 339 K/MM3 (134-434); RBC 4.43 M/mm3 (4.00-5.60); RDW 14.8 % (11.9-15.9); WHITE BLOOD COUNT 6.5 K/mm3 (4.0-10.0)
[2020-07-04 14:47] LABS: CALCIUM 9.3 mg/dL (8.5-10.1)
[2020-07-04 14:48] LABS: ALBUMIN 4.1 g/dl (3.4-5.0); BLOOD UREA NITROGEN 5.9 mg/dL (7-18)
[2020-07-04 14:50] LABS: BILIRUBIN,TOTAL 0.3 mg/dL (0.2-1)
[2020-07-04 14:51] LABS: CREATININE 0.6 mg/dL (0.55-1.3)
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
[2020-07-04] MEDS ORDERED: FLUoxetine HCL 20 MG CAPSULE PO SCH (15:00)
[2020-07-04] MEDS ORDERED: hydrOXYzine PAMOATE 50 MG CAPSULE (FP) PO PRN (15:01)
[2020-07-04] MEDS ORDERED: diazePAM 5 MG TABLET PO PRN (15:08)
--- NOTE | 2020-07-04 16:15 | EKG ---
Test Reason : Blood Pressure : / mmHG Vent. Rate : 070 BPM Atrial Rate : 070 BPM P-R Int : 128 ms QRS Dur : 088 ms QT Int : 392 ms P-R-T Axes : 025 058 038 degrees QTc Int : 423 ms NORMAL SINUS RHYTHM SEPTAL INFARCT , AGE UNDETERMINED ABNORMAL ECG WHEN COMPARED WITH ECG OF 01-JUL-2018 21:05, SEPTAL INFARCT IS NOW PRESENT Confirmed by BECKY DOLL MD ([id number]) on 07/04/2020 4:15:18 PM Referred By: Confirmed By:BECKY DOLL MD
[2020-07-04 17:22] VITALS: BP 123/86; PULSE 68; TEMP 97.9
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
--- NOTE | 2020-07-04 20:26 | PN ---
[facility] Progress Note Note: Patient is becoming more agitated and demanding for more medications. He was noted sitting on the windowsill stating that he wants to sign out against medical advice. Patient reports " I want to go home and take more drugs" Patient remains on 1:1 constant observation. Contacted [facility] and he was accepted and endorsed to Dr. Lee. He is being transferred to [facility] for further psych evaluation. Vital Signs Temperature 97.9 F 07/04/20 16:52 Pulse Rate 68 07/04/20 16:52 Respiratory Rate 17 07/04/20 16:52 Blood Pressure 123/86 07/04/20 16:52 O2 Sat by Pulse Oximetry (%) 100 07/04/20 12:20 Laboratory Last Values WBC 6.5 K/mm3 (4.0-10.0) 07/04/20 11:20 RBC 4.43 M/mm3 (4.00-5.60) 07/04/20 11:20 Hgb 13.5 GM/dL (11.7-16.9) 07/04/20 11:20 Hct 41.1 % (35.4-49) 07/04/20 11:20 MCV 92.8 fl (80-96) 07/04/20 11:20 MCH 30.5 pg (25.7-33.7) 07/04/20 11:20 MCHC 32.8 g/dl (32.0-35.9) 07/04/20 11:20 RDW 14.8 % (11.9-15.9) 07/04/20 11:20 Plt Count 339 K/MM3 (134-434) D 07/04/20 11:20 MPV 8.7 fl (7.5-11.1) 07/04/20 11:20 Sodium 139 mmol/L (136-145) 07/04/20 11:20 Potassium 4.2 mmol/L (3.5-5.1) 07/04/20 11:20 Chloride 104 mmol/L (98-107) 07/04/20 11:20 Carbon Dioxide 30 mmol/L (21-32) 07/04/20 11:20 Anion Gap 5 MMOL/L (8-16) L 07/04/20 11:20 BUN 5.9 mg/dL (7-18) L 07/04/20 11:20 Creatinine 0.6 mg/dL (0.55-1.3) 07/04/20 11:20 Est GFR (CKD-EPI)AfAm 160.83 07/04/20 11:20 Est GFR (CKD-EPI)NonAf 138.76 07/04/20 11:20 Random Glucose 84 mg/dL (74-106) 07/04/20 11:20 Calcium 9.3 mg/dL (8.5-10.1) 07/04/20 11:20 Total Bilirubin 0.3 mg/dL (0.2-1) 07/04/20 11:20 AST 16 U/L (15-37) 07/04/20 11:20 ALT 28 U/L (13-61) 07/04/20 11:20 Alkaline Phosphatase 78 U/L (45-117) 07/04/20 11:20 Total Protein 7.0 g/dl (6.4-8.2) 07/04/20 11:20 Albumin 4.1 g/dl (3.4-5.0) 07/04/20 11:20 Syphilis Serology Non-reactive (NONREACTIVE) 07/04/20 11:20 Action: Transfer patient to [facility]
[2020-07-04] MEDS ORDERED: MELATONIN 5 MG TABLETS PO SCH (22:00)
[2020-07-04] MEDS ORDERED: THIAMINE HCL 100 MG TABLET (FP) PO SCH (22:00)
[2020-07-05] MEDS ORDERED: NICOTINE 7 MG/24 HOURS TOPICAL PATCH TD SCH (10:00)
[2020-07-05] MEDS ORDERED: METHADONE (DETOX) 20 MG, METHADONE (DETOX) 5 MG PO ONE (10:00)
[2020-07-05] MEDS ORDERED: PRENATAL VITAMINS W/ FOLIC ACID TABLET (FP) PO SCH (10:00)
[2020-07-06] MEDS ORDERED: FLU VACCINE (FLULAVAL) PF 60 MCG/0.5 ML SYRINGE 2020-2021 IM ONE (06:00)
[2020-07-06] MEDS ORDERED: METHADONE HCL 10 MG TABLET (FOR DETOX USE ONLY) PO ONE (10:00)
[2020-07-07] MEDS ORDERED: METHADONE (DETOX) 10 MG, METHADONE (DETOX) 5 MG PO ONE (10:00)
[2020-07-08] MEDS ORDERED: METHADONE HCL 10 MG TABLET (FOR DETOX USE ONLY) PO ONE (10:00)
[2020-07-09] MEDS ORDERED: METHADONE HCL 5 MG TABLET (FOR DETOX USE ONLY) PO ONE (06:00)
== END 2020-07-04 23:55 | disposition short-term general hospital (02) | DRG 773 ==
LOC: YASAS 10:25 → Y3N 11:23
PROVIDERS: ADMIT Allergy & Immunology; ATTEND Allergy & Immunology
PROC: HZ2ZZZZ Detoxification Services for Substance Abuse Treatment (ICD-10-PCS; principal; 2020-07-04)
DX: F11.23 Opioid dependence with withdrawal (principal); F14.20 Cocaine dependence, uncomplicated; F12.20 Cannabis dependence, uncomplicated; F17.210 Nicotine dependence, cigarettes, uncomplicated; F19.282 Other psychoactive substance dependence with psychoactive substance-induced sleep disorder; F19.280 Other psychoactive substance dependence with psychoactive substance-induced anxiety disorder; F31.81 Bipolar II disorder; F60.9 Personality disorder, unspecified; F90.9 Attention-deficit hyperactivity disorder, unspecified type; R45.851 Suicidal ideations; G40.909 Epilepsy, unspecified, not intractable, without status epilepticus; Z62.810 Personal history of physical and sexual abuse in childhood; Z91.5 Personal history of self-harm; Z56.0 Unemployment, unspecified; Z59.0 Homelessness; Z88.6 Allergy status to analgesic agent
CPT/HCPCS: 36415; 80053; 80177; 85027; 86780; 93005; 93010; C9803; U0003

== ENCOUNTER 2020-08-20 11:51 | Inpatient (IN) | payer OTHER ==
[2020-08-20] MEDS ORDERED: MAGNESIUM HYDROX 2400MG/30ML ORAL SUSPENSION 30 ML CUP PO PRN (14:09)
[2020-08-20] MEDS ORDERED: BISMUTH SUBSALICYLATE 524 MG/30 ML UD PO PRN (14:09)
[2020-08-20] MEDS ORDERED: METHOCARBAMOL 500 MG TABLET PO PRN (14:09)
[2020-08-20] MEDS ORDERED: MAG HYDROX/AL HYDROX/SIMETH 30 ML UNIT-DOSE CUP PO PRN (14:09)
[2020-08-20] MEDS ORDERED: MENTHOL/PHENOL 1 EACH UD MM PRN (14:09)
[2020-08-20] MEDS ORDERED: IBUPROFEN 400 MG TABLET (FP) PO PRN (14:09)
[2020-08-20] MEDS ORDERED: ONDANSETRON *ODT* 4 MG TABLET SL PRN (14:09)
[2020-08-20] MEDS ORDERED: MAGNESIUM CITRATE 300 ML BOTTLE PO PRN (14:09)
[2020-08-20] MEDS ORDERED: TRIMETHOBENZAMIDE HCL 200MG/2ML INJ IM PRN (14:20)
[2020-08-20 14:42] VITALS: BMI 23.0
[2020-08-20] MEDS: diazePAM 5 MG TABLET PO PRN ×2 (15:39→19:01)
[2020-08-20] MEDS: diazePAM 5 MG TABLET PO SCH ×2 (16:54→22:34)
[2020-08-20] MEDS: hydrOXYzine PAMOATE 25 MG CAPSULE (FP) PO SCH ×2 (18:28→22:35)
[2020-08-20] MEDS: cloNIDine HCL 0.1 MG TABLET PO PRN (19:58)
[2020-08-20] MEDS: MELATONIN 5 MG TABLETS PO SCH (22:33)
[2020-08-20] MEDS: THIAMINE HCL 100 MG TABLET (FP) PO SCH (22:35)
[2020-08-20] MEDS ORDERED: MASKS NR ONE (23:05)
[2020-08-21] MEDS ORDERED: traZODone HCL 50 MG TABLET (FP) PO ONE (01:00)
[2020-08-21] MEDS: diazePAM 5 MG TABLET PO SCH ×4 (06:25→22:03)
[2020-08-21] MEDS: hydrOXYzine PAMOATE 25 MG CAPSULE (FP) PO SCH ×5 (06:26→22:03)
[2020-08-21 11:09] LABS: HEMOGLOBIN 14.6 GM/dL (11.7-16.9); MCH 29.8 pg (25.7-33.7); MCHC 32.5 g/dl (32.0-35.9); MEAN CELL VOLUME 91.9 fl (80-96); MEAN PLT VOLUME 8.8 fl (7.5-11.1); PLATELET COUNT 388 K/MM3 (134-434); RBC 4.89 M/mm3 (4.00-5.60); WHITE BLOOD COUNT 8.9 K/mm3 (4.0-10.0)
[2020-08-21 11:14] LABS: URINE APPEARANCE CLEAR; URINE BILIRUBIN NEGATIVE (NEGATIVE); URINE COLOR YELLOW; URINE GLUCOSE (UA) NEGATIVE (NEGATIVE); URINE KETONE NEGATIVE (NEGATIVE); URINE LEUK ESTERASE NEGATIVE (NEGATIVE); URINE NITRITE NEGATIVE (NEGATIVE); URINE PROTEIN NEGATIVE (NEGATIVE)
[2020-08-21 11:18] LABS: POTASSIUM 3.7 mmol/L (3.5-5.1)
[2020-08-21 11:26] LABS: ALBUMIN 4.3 g/dl (3.4-5.0); BLOOD UREA NITROGEN 12.1 mg/dL (7-18); CALCIUM 9.2 mg/dL (8.5-10.1)
[2020-08-21 11:27] LABS: CREATININE 0.8 mg/dL (0.55-1.3)
[2020-08-21 11:28] LABS: BILIRUBIN,TOTAL 1.2 mg/dL (0.2-1); TOT PROT 7.6 g/dl (6.4-8.2)
[2020-08-21] MEDS: cloNIDine HCL 0.1 MG TABLET PO PRN (11:42)
[2020-08-21] MEDS: PRENATAL VITAMINS W/ FOLIC ACID TABLET (FP) PO SCH (11:47)
[2020-08-21 12:14] LABS: HIV INTERPRETATION NEGATIVE (NEGATIVE)
[2020-08-21] MEDS: FLUoxetine HCL 20 MG CAPSULE PO SCH (13:12)
[2020-08-21] MEDS: diazePAM 5 MG TABLET PO PRN ×2 (14:18→19:18)
[2020-08-21] MEDS ORDERED: DIVALPROEX SODIUM 250 MG TABLET E.C. PO SCH (22:00)
[2020-08-21] MEDS ORDERED: traZODone HCL 100 MG TABLET (FP) PO SCH (22:00)
[2020-08-21] MEDS: THIAMINE HCL 100 MG TABLET (FP) PO SCH (22:03)
[2020-08-21] MEDS: MELATONIN 5 MG TABLETS PO SCH (22:03)
[2020-08-21] MEDS: levETIRAcetam 250 MG TABLET PO SCH (22:03)
[2020-08-22] MEDS: hydrOXYzine PAMOATE 25 MG CAPSULE (FP) PO SCH ×4 (06:58→17:12)
[2020-08-22] MEDS: diazePAM 5 MG TABLET PO SCH ×2 (06:58→14:26)
[2020-08-22 09:57] VITALS: TEMP 98.6
[2020-08-22] MEDS ORDERED: FLUoxetine HCL 20 MG CAPSULE PO SCH (10:00)
[2020-08-22] MEDS: PRENATAL VITAMINS W/ FOLIC ACID TABLET (FP) PO SCH (10:19)
[2020-08-22] MEDS: FLUoxetine HCL 20 MG CAPSULE PO SCH (10:20)
[2020-08-22] MEDS: diazePAM 5 MG TABLET PO PRN ×2 (10:20→17:12)
[2020-08-22] MEDS: levETIRAcetam 250 MG TABLET PO SCH (10:23)
[2020-08-22 15:32] VITALS: BP 120/60; PULSE 64
[2020-08-23] MEDS ORDERED: diazePAM 5 MG TABLET PO SCH (06:00)
[2020-08-24] MEDS ORDERED: diazePAM 5 MG TABLET PO ONE (06:00)
== END 2020-08-22 19:05 | disposition left against medical advice (07) | DRG 770 ==
LOC: YASAS 11:51 → Y6N 14:03
PROVIDERS: ADMIT Allergy & Immunology; ATTEND Allergy & Immunology
PROC: HZ2ZZZZ Detoxification Services for Substance Abuse Treatment (ICD-10-PCS; principal; 2020-08-20)
DX: F10.230 Alcohol dependence with withdrawal, uncomplicated (principal); F11.10 Opioid abuse, uncomplicated; F17.210 Nicotine dependence, cigarettes, uncomplicated; F90.9 Attention-deficit hyperactivity disorder, unspecified type; F31.81 Bipolar II disorder; F60.3 Borderline personality disorder; F19.24 Other psychoactive substance dependence with psychoactive substance-induced mood disorder; F19.282 Other psychoactive substance dependence with psychoactive substance-induced sleep disorder; G40.909 Epilepsy, unspecified, not intractable, without status epilepticus; Z88.6 Allergy status to analgesic agent; Z62.810 Personal history of physical and sexual abuse in childhood; Z56.0 Unemployment, unspecified
CPT/HCPCS: 36415; 80053; 80164; 80177; 81003; 85027; 86780; 87389; C9803; J0735; Q0162; U0003

== ENCOUNTER 2020-09-29 23:25 | Emergency (ER) | payer OTHER ==
[2020-09-29 23:35] VITALS: BMI 20.9
[2020-09-30 00:54] LABS: BASO % 1.3 % (0-2.0); EOS % 3.1 % (0-4.5); HEMATOCRIT 36.1 % (35.4-49); HEMOGLOBIN 11.7 GM/dL (11.7-16.9); LYMPH % 41.7 % (8-40); MCH 29.2 pg (25.7-33.7); MCHC 32.5 g/dl (32.0-35.9); MEAN CELL VOLUME 89.9 fl (80-96); MEAN PLT VOLUME 8.5 fl (7.5-11.1); MONO % 8.4 % (3.8-10.2); NEUT % 45.5 % (42.8-82.8); PLATELET COUNT 288 K/MM3 (134-434); RBC 4.01 M/mm3 (4.00-5.60); RDW 13.7 % (11.9-15.9); WHITE BLOOD COUNT 6.5 K/mm3 (4.0-10.0)
[2020-09-30 01:10] LABS: POTASSIUM 4.3 mmol/L (3.5-5.1)
[2020-09-30 01:13] LABS: CALCIUM 8.2 mg/dL (8.5-10.1)
[2020-09-30 01:16] LABS: CREATININE 0.7 mg/dL (0.55-1.3)
[2020-09-30 01:19] LABS: BILIRUBIN,TOTAL 0.1 mg/dL (0.2-1); TOT PROT 5.7 g/dl (6.4-8.2)
[2020-09-30 03:19] VITALS: BP 121/48; PULSE 85
== END 2020-09-30 06:34 | disposition home or self-care (01) ==
LOC: JER 23:25
DX: G40.909 Epilepsy, unspecified, not intractable, without status epilepticus (principal)
CPT/HCPCS: 36415; 70450-TC; 72125-TC; 73030-TC-LT-FY; 80053; 80164; 80177; 82550; 82553; 85025; 93005; 93010; 99285-25

== ENCOUNTER 2020-09-30 14:01 | Inpatient (IN) | payer OTHER ==
[2020-09-30] MEDS ORDERED: LORazepam 2 MG/ML SDV VIAL ONE ×3 (14:30→19:12)
[2020-09-30] MEDS ORDERED: LORazepam 2 MG/ML SDV VIAL IVPUSH STA ×3 (14:48→19:02)
[2020-09-30] MEDS ORDERED: DIVALPROEX SODIUM 500 MG TABLET E.C. PO ONE (15:19)
[2020-09-30] MEDS ORDERED: MAG HYDROX/AL HYDROX/SIMETH 30 ML UNIT-DOSE CUP PO PRN (20:42)
[2020-09-30] MEDS ORDERED: LORazepam 2 MG/ML SDV VIAL IM STA (21:09)
[2020-09-30 22:05] VITALS: BMI 23.9
[2020-09-30] MEDS: diazePAM 5 MG TABLET PO PRN (22:34)
[2020-09-30] MEDS: levETIRAcetam 250 MG TABLET PO SCH (22:36)
[2020-09-30] MEDS: THIAMINE HCL 100 MG TABLET (FP) PO SCH (22:37)
[2020-09-30] MEDS: MELATONIN 5 MG TABLETS PO SCH (22:37)
[2020-10-01] MEDS: diazePAM 5 MG TABLET PO PRN (06:39)
[2020-10-01 08:46] LABS: BASO % 3.1 % (0-2.0); EOS % 2.8 % (0-4.5); HEMATOCRIT 42.1 % (35.4-49); HEMOGLOBIN 14.1 GM/dl (11.7-16.9); LYMPH % 24.7 % (8-40); MCH 29.9 pg (25.7-33.7); MCHC 33.4 g/dl (32.0-35.9); MEAN CELL VOLUME 89.5 fl (80-96); MEAN PLT VOLUME 8.4 fl (7.5-11.1); NEUT % 62.4 % (42.8-82.8); PLATELET COUNT 344 K/MM3 (134-434); RBC 4.71 M/mm3 (4.00-5.60); RDW 13.2 % (11.9-15.9); WHITE BLOOD COUNT 7.9 K/mm3 (4.0-10.8)
[2020-10-01 09:02] LABS: ALBUMIN 4.1 g/dl (3.4-5.0); BILIRUBIN,TOTAL 0.7 mg/dl (0.2-1); CALCIUM 9.3 mg/dl (8.5-10); CREATININE 0.8 mg/dl (0.55-1.3); POTASSIUM 4.7 mmol/L (3.5-5.1); TOT PROT 7.1 g/dl (6.4-8.2)
[2020-10-01] MEDS ORDERED: PATIENT'S OWN MEDICATION (NON-FORMULARY) (Fluoxetine Hcl [Prozac] 40 MG Capsule) PO SCH (10:00)
[2020-10-01] MEDS ORDERED: PATIENT'S OWN MEDICATION (NON-FORMULARY) (Bupropion Hcl [Bupropion Xl] 300 MG Tab.Er.24h) PO SCH (10:00)
[2020-10-01] MEDS: PRENATAL VITAMINS W/ FOLIC ACID TABLET (FP) PO SCH (10:00)
[2020-10-01] MEDS ORDERED: METHADONE 10 MG, METHADONE 5 MG PO ONE (10:00)
[2020-10-01] MEDS ORDERED: METHADONE HCL 10 MG TABLET ONE (10:13)
[2020-10-01] MEDS ORDERED: PT OWN MED DRAWER 7, Y5N ONE (10:14)
[2020-10-01] MEDS ORDERED: METHADONE HCL 5 MG TABLET ONE (10:14)
[2020-10-01] MEDS: FLUoxetine HCL 20 MG CAPSULE PO SCH (10:23)
[2020-10-01] MEDS: levETIRAcetam 250 MG TABLET PO SCH ×2 (10:24→21:13)
[2020-10-01] MEDS: DIVALPROEX SODIUM 500 MG TABLET E.C. PO SCH ×2 (14:01→21:13)
[2020-10-01] MEDS ORDERED: LORazepam 1 MG TABLET PO ONE ×2 (17:26→17:45)
[2020-10-01] MEDS: THIAMINE HCL 100 MG TABLET (FP) PO SCH (21:14)
[2020-10-01] MEDS: MELATONIN 5 MG TABLETS PO SCH (21:14)
[2020-10-01] MEDS ORDERED: DIVALPROEX SODIUM 500 MG TABLET E.C. PO SCH (22:00)
[2020-10-01] MEDS ORDERED: IBUPROFEN 400 MG TABLET (FP) PO ONE (22:50)
[2020-10-01] MEDS ORDERED: diazePAM 5 MG TABLET PO ONE (22:50)
[2020-10-01] MEDS ORDERED: DOXYCYCLINE INJECTION 100 MG in DEXTROSE 5%-WATER 100 ML IVPB ONE (23:07)
[2020-10-02] MEDS ORDERED: diphenhydrAMINE HCL 50 MG CAPSULE PO ONE (06:56)
[2020-10-02] MEDS ORDERED: diphenhydrAMINE HCL 25 MG CAPSULE (FP) PO ONE (07:00)
[2020-10-02] MEDS ORDERED: PT OWN MED DRAWER 7, Y5N ONE (09:27)
[2020-10-02] MEDS: levETIRAcetam 250 MG TABLET PO SCH ×2 (09:52→22:09)
[2020-10-02] MEDS: DIVALPROEX SODIUM 500 MG TABLET E.C. PO SCH ×2 (09:52→22:09)
[2020-10-02] MEDS: FLUoxetine HCL 20 MG CAPSULE PO SCH (09:52)
[2020-10-02] MEDS: PRENATAL VITAMINS W/ FOLIC ACID TABLET (FP) PO SCH (09:53)
[2020-10-02] MEDS ORDERED: METHADONE HCL 10 MG TABLET PO ONE (10:00)
[2020-10-02] MEDS: THIAMINE HCL 100 MG TABLET (FP) PO SCH (22:09)
[2020-10-02] MEDS: MELATONIN 5 MG TABLETS PO SCH (22:09)
[2020-10-03] MEDS ORDERED: diazePAM 2 MG TABLET PO ONE (00:39)
[2020-10-03 05:22] VITALS: BP 106/58; PULSE 57; TEMP 97.8
[2020-10-03] MEDS ORDERED: METHADONE HCL 5 MG TABLET PO ONE (06:00)
[2020-10-03] MEDS: DIVALPROEX SODIUM 500 MG TABLET E.C. PO SCH (09:00)
[2020-10-03] MEDS: FLUoxetine HCL 20 MG CAPSULE PO SCH (09:00)
[2020-10-03] MEDS: PRENATAL VITAMINS W/ FOLIC ACID TABLET (FP) PO SCH (09:00)
[2020-10-03] MEDS: levETIRAcetam 250 MG TABLET PO SCH (09:00)
[2020-10-03 09:28] LABS: HEMATOCRIT 42.9 % (35.4-49); HEMOGLOBIN 14.1 GM/dl (11.7-16.9); MCH 29.7 pg (25.7-33.7); MCHC 32.9 g/dl (32.0-35.9); MEAN CELL VOLUME 90.2 fl (80-96); MEAN PLT VOLUME 8.4 fl (7.5-11.1); PLATELET COUNT 350 K/MM3 (134-434); RBC 4.75 M/mm3 (4.00-5.60); RDW 13.1 % (11.9-15.9); WHITE BLOOD COUNT 8.2 K/mm3 (4.0-10.8)
[2020-10-03 09:46] LABS: ALBUMIN 3.9 g/dl (3.4-5.0); BILIRUBIN,TOTAL 0.9 mg/dl (0.2-1); CALCIUM 8.9 mg/dl (8.5-10); CREATININE 0.8 mg/dl (0.55-1.3); POTASSIUM 4.4 mmol/L (3.5-5.1); TOT PROT 6.9 g/dl (6.4-8.2)
== END 2020-10-03 10:58 | disposition home or self-care (01) | DRG 756 ==
LOC: FER 14:01 → FM/S 18:50
PROVIDERS: ADMIT Internal Medicine; ATTEND Nurse Practitioner Acute Care
DX: F44.5 Conversion disorder with seizures or convulsions (principal); F11.23 Opioid dependence with withdrawal; F90.9 Attention-deficit hyperactivity disorder, unspecified type; R45.89 Other symptoms and signs involving emotional state; S01.01XA Laceration without foreign body of scalp, initial encounter; F31.9 Bipolar disorder, unspecified; F14.20 Cocaine dependence, uncomplicated; F60.3 Borderline personality disorder; T14.90XA Injury, unspecified, initial encounter; X58.XXXA Exposure to other specified factors, initial encounter; Y93.89 Activity, other specified; Y92.9 Unspecified place or not applicable; Z91.14 Patient's other noncompliance with medication regimen; F32.9 Major depressive disorder, single episode, unspecified
CPT/HCPCS: 36415; 70450-TC; 80053; 82962; 83735; 85025; 85027; 99285-25; C9803; U0003

== ENCOUNTER 2020-12-28 10:34 | Inpatient (IN) | payer OTHER ==
[2020-12-28 11:11] VITALS: BMI 22.6
[2020-12-28] MEDS ORDERED: MENTHOL/PHENOL 1 EACH UD MM PRN (12:11)
[2020-12-28] MEDS ORDERED: MAGNESIUM HYDROX 2400MG/30ML ORAL SUSPENSION 30 ML CUP PO PRN (12:11)
[2020-12-28] MEDS ORDERED: MAG HYDROX/AL HYDROX/SIMETH 30 ML UNIT-DOSE CUP PO PRN (12:11)
[2020-12-28] MEDS ORDERED: NICOTINE POLACRILEX 2 MG GUM BUC PRN (12:11)
[2020-12-28] MEDS ORDERED: METHADONE HCL 10 MG TABLET (FOR DETOX USE ONLY) PO ONE (12:11)
[2020-12-28] MEDS ORDERED: NALOXONE (NARCAN) HCL 4 MG/0.1 ML SPRAY NS PRN (12:11)
[2020-12-28] MEDS ORDERED: ONDANSETRON *ODT* 4 MG TABLET SL PRN (12:11)
[2020-12-28] MEDS ORDERED: MAGNESIUM CITRATE 300 ML BOTTLE PO PRN (12:11)
[2020-12-28] MEDS ORDERED: BISMUTH SUBSALICYLATE 262 MG/15 ML BTL PO PRN (12:11)
[2020-12-28] MEDS ORDERED: cloNIDine HCL 0.1 MG TABLET PO PRN (12:11)
[2020-12-28] MEDS ORDERED: IBUPROFEN 400 MG TABLET (FP) PO PRN (12:11)
[2020-12-28] MEDS ORDERED: ACETAMINOPHEN 325 MG TABLET (FP) PO PRN ×2 (12:11)
[2020-12-28] MEDS: PRENATAL VITAMINS W/ FOLIC ACID TABLET (FP) PO SCH (13:00)
[2020-12-28] MEDS ORDERED: hydrOXYzine PAMOATE 25 MG CAPSULE (FP) PO SCH (14:00)
[2020-12-28] MEDS: METHOCARBAMOL 500 MG TABLET PO PRN (15:21)
[2020-12-28 16:49] LABS: HEMATOCRIT 37.8 % (35.4-49); HEMOGLOBIN 12.6 GM/dL (11.7-16.9); MCH 29.7 pg (25.7-33.7); MCHC 33.3 g/dl (32.0-35.9); MEAN CELL VOLUME 89.2 fl (80-96); PLATELET COUNT 333 K/MM3 (134-434); RBC 4.24 M/mm3 (4.00-5.60); RDW 13.9 % (11.9-15.9); WHITE BLOOD COUNT 7.7 K/mm3 (4.0-10.0)
[2020-12-28 16:55] LABS: ALBUMIN 3.9 g/dl (3.4-5.0); BLOOD UREA NITROGEN 9.4 mg/dL (7-18)
[2020-12-28 16:58] LABS: CREATININE 0.7 mg/dL (0.55-1.3)
[2020-12-28 17:00] LABS: BILIRUBIN,TOTAL 0.5 mg/dL (0.2-1)
[2020-12-28] MEDS: BACITRACIN 0.9 GM PACKET TP SCH (23:18)
[2020-12-28] MEDS: THIAMINE HCL 100 MG TABLET (FP) PO SCH (23:19)
[2020-12-28] MEDS: MELATONIN 5 MG TABLETS PO SCH (23:19)
[2020-12-29] MEDS ORDERED: METHADONE HCL 10 MG TABLET (FOR DETOX USE ONLY) ONE (09:12)
[2020-12-29] MEDS ORDERED: METHADONE HCL 5 MG TABLET (FOR DETOX USE ONLY) ONE (09:12)
[2020-12-29] MEDS ORDERED: METHADONE (DETOX) 20 MG, METHADONE (DETOX) 5 MG PO ONE (10:00)
[2020-12-29] MEDS: PRENATAL VITAMINS W/ FOLIC ACID TABLET (FP) PO SCH (10:33)
[2020-12-29] MEDS: BACITRACIN 0.9 GM PACKET TP SCH ×2 (10:33→22:15)
[2020-12-29] MEDS: METHOCARBAMOL 500 MG TABLET PO PRN (10:35)
[2020-12-29] MEDS: diazePAM 5 MG TABLET PO PRN (10:35)
[2020-12-29] MEDS: SUVOREXANT 10 MG TABLET PO PRN (22:14)
[2020-12-29] MEDS: MELATONIN 5 MG TABLETS PO SCH (22:15)
[2020-12-29] MEDS: THIAMINE HCL 100 MG TABLET (FP) PO SCH (22:15)
[2020-12-29] MEDS: levETIRAcetam 250 MG TABLET PO SCH (22:15)
[2020-12-30] MEDS: diazePAM 5 MG TABLET PO PRN ×5 (00:58→22:14)
[2020-12-30] MEDS ORDERED: METHADONE HCL 10 MG TABLET (FOR DETOX USE ONLY) PO ONE (10:00)
[2020-12-30] MEDS: BACITRACIN 0.9 GM PACKET TP SCH ×2 (10:53→22:14)
[2020-12-30] MEDS: PRENATAL VITAMINS W/ FOLIC ACID TABLET (FP) PO SCH (10:55)
[2020-12-30] MEDS: METHOCARBAMOL 500 MG TABLET PO PRN (10:55)
[2020-12-30] MEDS: levETIRAcetam 250 MG TABLET PO SCH ×2 (10:55→23:31)
[2020-12-30] MEDS: hydrOXYzine PAMOATE 50 MG CAPSULE (FP) PO PRN (19:08)
[2020-12-30] MEDS: THIAMINE HCL 100 MG TABLET (FP) PO SCH (22:14)
[2020-12-30] MEDS: MELATONIN 5 MG TABLETS PO SCH (22:14)
[2020-12-30] MEDS: SUVOREXANT 10 MG TABLET PO PRN (22:15)
[2020-12-31] MEDS ORDERED: METHADONE HCL 10 MG TABLET (FOR DETOX USE ONLY) ONE (08:47)
[2020-12-31] MEDS ORDERED: METHADONE HCL 5 MG TABLET (FOR DETOX USE ONLY) ONE (08:47)
[2020-12-31] MEDS ORDERED: METHADONE (DETOX) 10 MG, METHADONE (DETOX) 5 MG PO ONE (10:00)
[2020-12-31 10:07] LABS: SARS-CoV-2 NAA Not Detected (Not Detected)
[2020-12-31] MEDS ORDERED: P-EPHED 60MG/TRIPROLIDI 2.5MG TABLET PO PRN (10:38)
[2020-12-31] MEDS: BACITRACIN 0.9 GM PACKET TP SCH ×2 (10:40→22:22)
[2020-12-31] MEDS: levETIRAcetam 250 MG TABLET PO SCH ×3 (10:41→22:22)
[2020-12-31] MEDS: PRENATAL VITAMINS W/ FOLIC ACID TABLET (FP) PO SCH (10:41)
[2020-12-31] MEDS: diazePAM 5 MG TABLET PO PRN ×3 (10:41→23:10)
[2020-12-31] MEDS: THIAMINE HCL 100 MG TABLET (FP) PO SCH (22:22)
[2020-12-31] MEDS: MELATONIN 5 MG TABLETS PO SCH (22:22)
[2021-01-01] MEDS: diazePAM 5 MG TABLET PO PRN (05:50)
[2021-01-01] MEDS ORDERED: METHADONE HCL 10 MG TABLET (FOR DETOX USE ONLY) PO ONE (10:00)
[2021-01-01] MEDS: BACITRACIN 0.9 GM PACKET TP SCH (10:00)
[2021-01-01] MEDS: PRENATAL VITAMINS W/ FOLIC ACID TABLET (FP) PO SCH (10:01)
[2021-01-01] MEDS: hydrOXYzine PAMOATE 50 MG CAPSULE (FP) PO PRN (10:01)
[2021-01-01] MEDS: levETIRAcetam 250 MG TABLET PO SCH (10:01)
[2021-01-01 10:36] VITALS: BP 141/91; PULSE 95; TEMP 97.5
[2021-01-02] MEDS ORDERED: METHADONE HCL 5 MG TABLET (FOR DETOX USE ONLY) PO ONE (06:00)
== END 2021-01-01 11:26 | disposition home or self-care (01) | DRG 773 ==
LOC: YASAS 10:34 → Y6N 11:31
PROVIDERS: ADMIT Allergy & Immunology; ATTEND Allergy & Immunology
PROC: HZ2ZZZZ Detoxification Services for Substance Abuse Treatment (ICD-10-PCS; principal; 2020-12-28)
DX: F11.23 Opioid dependence with withdrawal (principal); F14.20 Cocaine dependence, uncomplicated; F10.10 Alcohol abuse, uncomplicated; F19.20 Other psychoactive substance dependence, uncomplicated; F12.20 Cannabis dependence, uncomplicated; F17.210 Nicotine dependence, cigarettes, uncomplicated; F31.81 Bipolar II disorder; F19.24 Other psychoactive substance dependence with psychoactive substance-induced mood disorder; F44.5 Conversion disorder with seizures or convulsions; F42.4 Excoriation (skin-picking) disorder; F90.9 Attention-deficit hyperactivity disorder, unspecified type; G43.909 Migraine, unspecified, not intractable, without status migrainosus; Z62.810 Personal history of physical and sexual abuse in childhood; Z98.890 Other specified postprocedural states; Z88.8 Allergy status to other drugs, medicaments and biological substances
CPT/HCPCS: 36415; 71045-TC-FY; 80053; 80164; 80177; 85027; 86780; C9803; J0735; U0003; U0005

== ENCOUNTER 2021-03-02 09:47 | Inpatient (IN) | payer OTHER ==
[2021-03-02 11:00] VITALS: BMI 23.6
[2021-03-02] MEDS ORDERED: MAGNESIUM HYDROX 2400MG/30ML ORAL SUSPENSION 30 ML CUP PO PRN (11:52)
[2021-03-02] MEDS ORDERED: MAGNESIUM CITRATE 300 ML BOTTLE PO PRN (11:52)
[2021-03-02] MEDS ORDERED: MAG HYDROX/AL HYDROX/SIMETH 30 ML UNIT-DOSE CUP PO PRN (11:52)
[2021-03-02] MEDS ORDERED: MENTHOL/PHENOL 1 EACH UD MM PRN (11:52)
[2021-03-02] MEDS ORDERED: IBUPROFEN 400 MG TABLET (FP) PO PRN (11:52)
[2021-03-02] MEDS ORDERED: METHADONE HCL 10 MG TABLET (FOR DETOX USE ONLY) PO ONE (11:52)
[2021-03-02] MEDS ORDERED: BISMUTH SUBSALICYLATE 262 MG/15 ML BTL PO PRN (11:52)
[2021-03-02] MEDS ORDERED: NICOTINE POLACRILEX 2 MG GUM BUC PRN (11:52)
[2021-03-02] MEDS ORDERED: ONDANSETRON *ODT* 4 MG TABLET SL PRN (11:52)
[2021-03-02] MEDS ORDERED: ACETAMINOPHEN 325 MG TABLET (FP) PO PRN ×2 (11:52)
[2021-03-02] MEDS: METHOCARBAMOL 500 MG TABLET PO PRN ×2 (13:33→22:19)
[2021-03-02] MEDS: PRENATAL VITAMINS W/ FOLIC ACID TABLET (FP) PO SCH (13:34)
[2021-03-02] MEDS: NICOTINE 7 MG/24 HOURS TOPICAL PATCH TD SCH (13:34)
[2021-03-02] MEDS ORDERED: hydrOXYzine PAMOATE 25 MG CAPSULE (FP) PO SCH (14:00)
[2021-03-02 14:12] LABS: HEMATOCRIT 34.6 % (35.4-49); HEMOGLOBIN 11.3 GM/dL (11.7-16.9); MCH 29.3 pg (25.7-33.7); MCHC 32.6 g/dl (32.0-35.9); MEAN CELL VOLUME 89.7 fl (80-96); PLATELET COUNT 229 10^3/uL (134-434); RBC 3.86 M/mm3 (4.00-5.60); RDW 14.1 % (11.9-15.9); WHITE BLOOD COUNT 7.9 K/mm3 (4.0-10.0)
[2021-03-02 14:14] LABS: ALBUMIN 3.7 g/dl (3.4-5.0)
[2021-03-02 14:15] LABS: BLOOD UREA NITROGEN 11.8 mg/dL (7-18); CALCIUM 8.8 mg/dL (8.5-10.1)
[2021-03-02 14:19] LABS: CREATININE 0.8 mg/dL (0.55-1.3)
[2021-03-02 14:20] LABS: TOT PROT 6.4 g/dl (6.4-8.2)
[2021-03-02 15:08] LABS: HIV INTERPRETATION NEGATIVE (NEGATIVE)
[2021-03-02] MEDS: hydrOXYzine PAMOATE 25 MG CAPSULE (FP) PO PRN ×2 (17:51→22:19)
[2021-03-02] MEDS: traZODone HCL 50 MG TABLET (FP) PO SCH (22:19)
[2021-03-02] MEDS: THIAMINE HCL 100 MG TABLET (FP) PO SCH (22:19)
[2021-03-02] MEDS: cloNIDine HCL 0.1 MG TABLET PO PRN (22:19)
[2021-03-02] MEDS: MELATONIN 5 MG TABLETS PO SCH (22:20)
[2021-03-03] MEDS ORDERED: METHADONE HCL 5 MG TABLET (FOR DETOX USE ONLY) ONE (09:37)
[2021-03-03] MEDS ORDERED: METHADONE HCL 10 MG TABLET (FOR DETOX USE ONLY) ONE (09:37)
[2021-03-03] MEDS ORDERED: METHADONE (DETOX) 20 MG, METHADONE (DETOX) 5 MG PO ONE (10:00)
[2021-03-03] MEDS: NICOTINE 7 MG/24 HOURS TOPICAL PATCH TD SCH (11:09)
[2021-03-03] MEDS: METHOCARBAMOL 500 MG TABLET PO PRN ×2 (11:14→23:28)
[2021-03-03] MEDS: cloNIDine HCL 0.1 MG TABLET PO PRN ×2 (11:14→16:12)
[2021-03-03] MEDS: hydrOXYzine PAMOATE 25 MG CAPSULE (FP) PO PRN ×3 (11:14→23:28)
[2021-03-03] MEDS: PRENATAL VITAMINS W/ FOLIC ACID TABLET (FP) PO SCH (11:15)
[2021-03-03] MEDS: traZODone HCL 50 MG TABLET (FP) PO SCH (23:27)
[2021-03-03] MEDS: THIAMINE HCL 100 MG TABLET (FP) PO SCH (23:28)
[2021-03-03] MEDS: MELATONIN 5 MG TABLETS PO SCH (23:28)
[2021-03-04] MEDS ORDERED: METHADONE HCL 10 MG TABLET (FOR DETOX USE ONLY) PO ONE (10:00)
[2021-03-04] MEDS: PRENATAL VITAMINS W/ FOLIC ACID TABLET (FP) PO SCH (11:20)
[2021-03-04] MEDS: METHOCARBAMOL 500 MG TABLET PO PRN (11:20)
[2021-03-04] MEDS: NICOTINE 7 MG/24 HOURS TOPICAL PATCH TD SCH (11:20)
[2021-03-04] MEDS: hydrOXYzine PAMOATE 25 MG CAPSULE (FP) PO PRN (11:23)
[2021-03-04 17:43] VITALS: BP 121/74; PULSE 70; TEMP 96.9
[2021-03-05] MEDS ORDERED: METHADONE (DETOX) 10 MG, METHADONE (DETOX) 5 MG PO ONE (10:00)
[2021-03-05 16:08] LABS: SARS-CoV-2 NAA Not Detected (Not Detected)
[2021-03-06] MEDS ORDERED: METHADONE HCL 10 MG TABLET (FOR DETOX USE ONLY) PO ONE (10:00)
[2021-03-07] MEDS ORDERED: METHADONE HCL 5 MG TABLET (FOR DETOX USE ONLY) PO ONE (06:00)
== END 2021-03-04 18:45 | disposition home or self-care (01) | DRG 773 ==
LOC: YASAS 09:47 → Y3N 11:28
PROVIDERS: ADMIT Allergy & Immunology; ATTEND Allergy & Immunology
PROC: HZ2ZZZZ Detoxification Services for Substance Abuse Treatment (ICD-10-PCS; principal; 2021-03-02)
DX: F11.23 Opioid dependence with withdrawal (principal); F10.20 Alcohol dependence, uncomplicated; F14.20 Cocaine dependence, uncomplicated; F12.20 Cannabis dependence, uncomplicated; F17.210 Nicotine dependence, cigarettes, uncomplicated; F19.280 Other psychoactive substance dependence with psychoactive substance-induced anxiety disorder; F19.282 Other psychoactive substance dependence with psychoactive substance-induced sleep disorder; F19.24 Other psychoactive substance dependence with psychoactive substance-induced mood disorder; F31.81 Bipolar II disorder; F41.1 Generalized anxiety disorder; F90.9 Attention-deficit hyperactivity disorder, unspecified type; F43.10 Post-traumatic stress disorder, unspecified; U07.1 COVID-19; G40.909 Epilepsy, unspecified, not intractable, without status epilepticus; Z87.820 Personal history of traumatic brain injury; Z91.410 Personal history of adult physical and sexual abuse; Z88.6 Allergy status to analgesic agent; Z56.0 Unemployment, unspecified; Z91.14 Patient's other noncompliance with medication regimen
CPT/HCPCS: 36415; 80053; 85027; 86780; 87389; C9803; J0735; Q0162; U0003; U0005

== ENCOUNTER 2021-03-23 18:02 | Inpatient (IN) | payer OTHER ==
[2021-03-23 20:10] VITALS: BMI 23.6
[2021-03-23] MEDS ORDERED: MELATONIN 5 MG TABLETS PO SCH (22:00)
[2021-03-23] MEDS ORDERED: MAGNESIUM CITRATE 300 ML BOTTLE PO PRN (23:02)
[2021-03-23] MEDS ORDERED: NICOTINE POLACRILEX 2 MG GUM BC PRN (23:02)
[2021-03-23] MEDS ORDERED: ACETAMINOPHEN 325 MG TABLET (FP) PO PRN (23:02)
[2021-03-23] MEDS ORDERED: P-EPHED 60MG/TRIPROLIDI 2.5MG TABLET PO PRN (23:02)
[2021-03-23] MEDS ORDERED: IBUPROFEN 400 MG TABLET (FP) PO PRN (23:02)
[2021-03-23] MEDS ORDERED: MAG HYDROX/AL HYDROX/SIMETH 30 ML UNIT-DOSE CUP PO PRN (23:02)
[2021-03-23] MEDS ORDERED: guaiFENesin 200 MG/10 ML 10 ML UNIT-DOSE CUPS PO PRN (23:02)
[2021-03-23] MEDS ORDERED: LOPERAMIDE HCL 2 MG CAPSULE PO PRN (23:02)
[2021-03-23] MEDS ORDERED: MAGNESIUM HYDROX 2400MG/30ML ORAL SUSPENSION 30 ML CUP PO PRN (23:02)
[2021-03-24] MEDS ORDERED: guaiFENesin 200 MG/10 ML 10 ML UNIT-DOSE CUPS PO PRN (00:21)
[2021-03-24] MEDS ORDERED: P-EPHED 60MG/TRIPROLIDI 2.5MG TABLET PO PRN (00:21)
[2021-03-24] MEDS ORDERED: MAGNESIUM CITRATE 300 ML BOTTLE PO PRN (00:21)
[2021-03-24] MEDS ORDERED: ACETAMINOPHEN 325 MG TABLET (FP) PO PRN (00:21)
[2021-03-24] MEDS ORDERED: MAG HYDROX/AL HYDROX/SIMETH 30 ML UNIT-DOSE CUP PO PRN (00:21)
[2021-03-24] MEDS ORDERED: MAGNESIUM HYDROX 2400MG/30ML ORAL SUSPENSION 30 ML CUP PO PRN (00:21)
[2021-03-24] MEDS ORDERED: LOPERAMIDE HCL 2 MG CAPSULE PO PRN (00:21)
[2021-03-24] MEDS ORDERED: IBUPROFEN 400 MG TABLET (FP) PO PRN (00:21)
[2021-03-24] MEDS ORDERED: hydrOXYzine PAMOATE 25 MG CAPSULE (FP) PO SCH (06:00)
[2021-03-24] MEDS ORDERED: NALOXONE (NARCAN) HCL 4 MG/0.1 ML SPRAY NS PRN (08:13)
[2021-03-24] MEDS ORDERED: NICOTINE 7 MG/24 HOURS TOPICAL PATCH TD SCH (10:00)
[2021-03-24] MEDS ORDERED: PRENATAL VITAMINS W/ FOLIC ACID TABLET (FP) PO SCH (10:00)
[2021-03-24] MEDS: PRENATAL VITAMINS W/ FOLIC ACID TABLET (FP) PO SCH (10:07)
[2021-03-24 13:09] LABS: HEMATOCRIT 37.1 % (35.4-49); MCH 28.6 pg (25.7-33.7); MCHC 32.3 g/dl (32.0-35.9); MEAN CELL VOLUME 88.7 fl (80-96); MEAN PLT VOLUME 8.6 fl (7.5-11.1); PLATELET COUNT 238 10^3/uL (134-434); RBC 4.18 M/mm3 (4.00-5.60); RDW 13.9 % (11.9-15.9); WHITE BLOOD COUNT 6.5 K/mm3 (4.0-10.0)
[2021-03-24 13:29] LABS: ALBUMIN 3.5 g/dl (3.4-5.0); BLOOD UREA NITROGEN 8.8 mg/dL (7-18)
[2021-03-24 13:31] LABS: CALCIUM 8.7 mg/dL (8.5-10.1)
[2021-03-24 13:32] LABS: CREATININE 0.7 mg/dL (0.55-1.3)
[2021-03-24] MEDS: MELATONIN 5 MG TABLETS PO SCH (21:42)
[2021-03-24] MEDS: THIAMINE HCL 100 MG TABLET (FP) PO SCH (21:42)
[2021-03-24] MEDS: traZODone HCL 100 MG TABLET (FP) PO SCH (21:42)
[2021-03-24] MEDS ORDERED: THIAMINE HCL 100 MG TABLET (FP) PO SCH (22:00)
[2021-03-25] MEDS: PRENATAL VITAMINS W/ FOLIC ACID TABLET (FP) PO SCH (09:30)
[2021-03-25] MEDS: hydrOXYzine PAMOATE 25 MG CAPSULE (FP) PO PRN ×2 (10:26→22:00)
[2021-03-25] MEDS: THIAMINE HCL 100 MG TABLET (FP) PO SCH (22:00)
[2021-03-25] MEDS: traZODone HCL 100 MG TABLET (FP) PO SCH (22:00)
[2021-03-25] MEDS: MELATONIN 5 MG TABLETS PO SCH (22:01)
[2021-03-25] MEDS ORDERED: MASKS NR ONE (23:06)
[2021-03-26] MEDS: PRENATAL VITAMINS W/ FOLIC ACID TABLET (FP) PO SCH (09:56)
[2021-03-26] MEDS: hydrOXYzine PAMOATE 25 MG CAPSULE (FP) PO PRN ×2 (14:44→21:16)
[2021-03-26] MEDS: THIAMINE HCL 100 MG TABLET (FP) PO SCH (21:16)
[2021-03-26] MEDS: traZODone HCL 100 MG TABLET (FP) PO SCH (21:16)
[2021-03-26] MEDS: MELATONIN 5 MG TABLETS PO SCH (21:16)
[2021-03-27 07:12] VITALS: BP 105/67; PULSE 58; TEMP 97.5
[2021-03-27] MEDS: hydrOXYzine PAMOATE 25 MG CAPSULE (FP) PO PRN ×2 (09:01→21:34)
[2021-03-27] MEDS: PRENATAL VITAMINS W/ FOLIC ACID TABLET (FP) PO SCH (09:53)
[2021-03-27] MEDS ORDERED: NAPROXEN 500 MG TABLET PO ONE (20:55)
[2021-03-27] MEDS: MELATONIN 5 MG TABLETS PO SCH (21:34)
[2021-03-27] MEDS: THIAMINE HCL 100 MG TABLET (FP) PO SCH (21:34)
[2021-03-27] MEDS: traZODone HCL 100 MG TABLET (FP) PO SCH (21:34)
[2021-03-28] MEDS: PRENATAL VITAMINS W/ FOLIC ACID TABLET (FP) PO SCH (10:03)
[2021-03-28] MEDS: THIAMINE HCL 100 MG TABLET (FP) PO SCH (21:16)
[2021-03-28] MEDS: traZODone HCL 100 MG TABLET (FP) PO SCH (21:16)
[2021-03-28] MEDS: MELATONIN 5 MG TABLETS PO SCH (21:16)
[2021-03-28] MEDS: hydrOXYzine PAMOATE 25 MG CAPSULE (FP) PO PRN (21:17)
[2021-03-29] MEDS: PRENATAL VITAMINS W/ FOLIC ACID TABLET (FP) PO SCH (10:05)
== END 2021-03-29 11:15 | disposition home or self-care (01) | DRG 772 ==
LOC: YASAS 18:02 → Y5N 23:10
PROVIDERS: ADMIT Allergy & Immunology; ATTEND Allergy & Immunology
PROC: HZ42ZZZ Group Counseling for Substance Abuse Treatment, Cognitive-Behavioral (ICD-10-PCS; principal; 2021-03-23)
DX: F10.20 Alcohol dependence, uncomplicated (principal); F14.20 Cocaine dependence, uncomplicated; F11.20 Opioid dependence, uncomplicated; F12.20 Cannabis dependence, uncomplicated; F43.10 Post-traumatic stress disorder, unspecified; F44.5 Conversion disorder with seizures or convulsions; F90.9 Attention-deficit hyperactivity disorder, unspecified type; F19.282 Other psychoactive substance dependence with psychoactive substance-induced sleep disorder; G43.909 Migraine, unspecified, not intractable, without status migrainosus; Z62.810 Personal history of physical and sexual abuse in childhood; Z91.410 Personal history of adult physical and sexual abuse; Z87.820 Personal history of traumatic brain injury; Z91.5 Personal history of self-harm; Z87.891 Personal history of nicotine dependence; Z86.69 Personal history of other diseases of the nervous system and sense organs; Z86.59 Personal history of other mental and behavioral disorders; Z88.6 Allergy status to analgesic agent
CPT/HCPCS: 36415; 80053; 85027; 86780; C9803; U0003; U0005

== ENCOUNTER 2021-08-01 16:07 | Inpatient (IN) | payer OTHER ==
[2021-08-01 18:39] VITALS: BMI 20.9
[2021-08-02] MEDS ORDERED: diazePAM 5 MG TABLET PO PRN (01:47)
[2021-08-02] MEDS ORDERED: MENTHOL/PHENOL 1 EACH UD MM PRN (01:49)
[2021-08-02] MEDS ORDERED: MAGNESIUM HYDROX 2400MG/30ML ORAL SUSPENSION 30 ML CUP PO PRN (01:49)
[2021-08-02] MEDS ORDERED: MAGNESIUM CITRATE 300 ML BOTTLE PO PRN (01:49)
[2021-08-02] MEDS ORDERED: MAG HYDROX/AL HYDROX/SIMETH 30 ML UNIT-DOSE CUP PO PRN (01:49)
[2021-08-02] MEDS ORDERED: BISMUTH SUBSALICYLATE 524 MG/30 ML PO PRN (01:49)
[2021-08-02] MEDS ORDERED: NICOTINE POLACRILEX 2 MG GUM BUC PRN (01:49)
[2021-08-02] MEDS ORDERED: IBUPROFEN 400 MG TABLET (FP) PO PRN (01:49)
[2021-08-02] MEDS ORDERED: methaDONE HCL 10 MG TABLET (FOR DETOX USE ONLY) PO ONE (01:56)
[2021-08-02] MEDS ORDERED: cloNIDine HCL 0.1 MG TABLET PO PRN (01:56)
[2021-08-02] MEDS: ONDANSETRON *ODT* 4 MG TABLET SL PRN (02:17)
[2021-08-02] MEDS: METHOCARBAMOL 500 MG TABLET PO PRN ×2 (02:18→19:40)
[2021-08-02] MEDS ORDERED: diazePAM 5 MG TABLET PO SCH (05:00)
[2021-08-02] MEDS: PRENATAL VITAMINS W/ FOLIC ACID TABLET (FP) PO SCH (11:04)
[2021-08-02] MEDS: NICOTINE 14 MG/24 HOURS TOPICAL PATCH TD SCH (11:04)
[2021-08-02 12:12] LABS: HIV INTERPRETATION NEGATIVE (NEGATIVE)
[2021-08-02 13:41] LABS: HEMATOCRIT 35.6 % (35.4-49); HEMOGLOBIN 11.8 GM/dL (11.7-16.9); MCH 28.7 pg (25.7-33.7); MCHC 33.1 g/dl (32.0-35.9); MEAN CELL VOLUME 86.6 fl (80-96); MEAN PLT VOLUME 8.2 fl (7.5-11.1); PLATELET COUNT 255 10^3/uL (134-434); RBC 4.11 M/mm3 (4.00-5.60); RDW 15.2 % (11.9-15.9); WHITE BLOOD COUNT 6.2 K/mm3 (4.0-10.0)
[2021-08-02 13:51] LABS: CALCIUM 8.4 mg/dL (8.5-10.1)
[2021-08-02 13:54] LABS: BLOOD UREA NITROGEN 8.9 mg/dL (7-18)
[2021-08-02 13:57] LABS: CREATININE 0.6 mg/dL (0.55-1.3)
[2021-08-02 14:00] LABS: BILIRUBIN,TOTAL 0.5 mg/dL (0.2-1)
[2021-08-02] MEDS: clonazePAM 0.5 MG ODT TABLETS SL PRN (19:40)
[2021-08-02] MEDS: MELATONIN 5 MG TABLETS PO SCH (23:06)
[2021-08-02] MEDS: traZODone HCL 100 MG TABLET (FP) PO SCH (23:06)
[2021-08-02] MEDS: THIAMINE HCL 100 MG TABLET (FP) PO SCH (23:06)
[2021-08-03] MEDS: traZODone HCL 100 MG TABLET (FP) PO SCH ×2 (00:05→22:44)
[2021-08-03] MEDS ORDERED: diazePAM 5 MG TABLET PO SCH (06:00)
[2021-08-03] MEDS ORDERED: methaDONE HCL 10 MG TABLET (FOR DETOX USE ONLY) ONE (08:56)
[2021-08-03] MEDS: clonazePAM 0.5 MG ODT TABLETS SL PRN ×2 (10:57→20:54)
[2021-08-03] MEDS: PRENATAL VITAMINS W/ FOLIC ACID TABLET (FP) PO SCH (10:57)
[2021-08-03] MEDS: NICOTINE 14 MG/24 HOURS TOPICAL PATCH TD SCH (11:03)
[2021-08-03] MEDS ORDERED: FLU VACC QS2021-22(6MOS UP)/PF 60 MCG/0.5 ML SYRINGE IM ONE (12:00)
[2021-08-03] MEDS: CYPROHEPTADINE HCL 4 MG TABLET PO SCH (18:38)
[2021-08-03] MEDS: MELATONIN 5 MG TABLETS PO SCH (22:44)
[2021-08-03] MEDS: THIAMINE HCL 100 MG TABLET (FP) PO SCH (22:44)
[2021-08-03] MEDS: METHOCARBAMOL 500 MG TABLET PO PRN (22:45)
[2021-08-03] MEDS: NICOTINE 10 MG CARTRIDGE (INHALER) IH PRN (22:47)
[2021-08-04] MEDS ORDERED: diazePAM 5 MG TABLET PO SCH (06:00)
[2021-08-04] MEDS: CYPROHEPTADINE HCL 4 MG TABLET PO SCH ×3 (06:39→17:59)
[2021-08-04] MEDS ORDERED: methaDONE HCL 10 MG TABLET (FOR DETOX USE ONLY) PO ONE ×3 (10:00→18:00)
[2021-08-04] MEDS: NICOTINE 10 MG CARTRIDGE (INHALER) IH PRN ×3 (10:48→22:10)
[2021-08-04] MEDS: PRENATAL VITAMINS W/ FOLIC ACID TABLET (FP) PO SCH (10:49)
[2021-08-04] MEDS: NICOTINE 14 MG/24 HOURS TOPICAL PATCH TD SCH (10:49)
[2021-08-04] MEDS: clonazePAM 0.5 MG ODT TABLETS SL PRN ×2 (10:54→18:00)
[2021-08-04] MEDS ORDERED: SULFAMETHOXAZOLE/TRIMETHOPRIM 800MG/160MG D.S. TABLET PO ONE (14:08)
[2021-08-04] MEDS: METHOCARBAMOL 500 MG TABLET PO PRN (18:00)
[2021-08-04] MEDS: ONDANSETRON *ODT* 4 MG TABLET SL PRN (18:01)
[2021-08-04] MEDS: THIAMINE HCL 100 MG TABLET (FP) PO SCH (22:10)
[2021-08-04] MEDS: SULFAMETHOXAZOLE/TRIMETHOPRIM 800MG/160MG D.S. TABLET PO SCH (22:10)
[2021-08-04] MEDS: MELATONIN 5 MG TABLETS PO SCH (22:10)
[2021-08-04] MEDS: traZODone HCL 100 MG TABLET (FP) PO SCH (22:10)
[2021-08-05] MEDS ORDERED: diazePAM 5 MG TABLET PO ONE (06:00)
[2021-08-05] MEDS: CYPROHEPTADINE HCL 4 MG TABLET PO SCH ×2 (08:21→10:19)
[2021-08-05] MEDS ORDERED: methaDONE HCL 10 MG TABLET (FOR DETOX USE ONLY) ONE (09:04)
[2021-08-05] MEDS: NICOTINE 10 MG CARTRIDGE (INHALER) IH PRN ×3 (09:12→13:56)
[2021-08-05] MEDS: NICOTINE 14 MG/24 HOURS TOPICAL PATCH TD SCH (10:20)
[2021-08-05] MEDS: SULFAMETHOXAZOLE/TRIMETHOPRIM 800MG/160MG D.S. TABLET PO SCH (10:20)
[2021-08-05] MEDS: PRENATAL VITAMINS W/ FOLIC ACID TABLET (FP) PO SCH (10:20)
[2021-08-05] MEDS: METHOCARBAMOL 500 MG TABLET PO PRN (10:46)
[2021-08-05 14:03] VITALS: BP 119/75; TEMP 97.1
[2021-08-05 14:10] VITALS: PULSE 90
[2021-08-06] MEDS ORDERED: methaDONE HCL 10 MG TABLET (FOR DETOX USE ONLY) PO ONE ×3 (10:00→18:00)
== END 2021-08-05 15:30 | disposition left against medical advice (07) | DRG 770 ==
LOC: YASAS 16:07 → UNDOADMIN 18:23 → Y3N 18:23
PROVIDERS: ADMIT Allergy & Immunology; ATTEND Allergy & Immunology
PROC: HZ2ZZZZ Detoxification Services for Substance Abuse Treatment (ICD-10-PCS; principal; 2021-08-02)
DX: F11.23 Opioid dependence with withdrawal (principal); F14.20 Cocaine dependence, uncomplicated; F17.210 Nicotine dependence, cigarettes, uncomplicated; F19.24 Other psychoactive substance dependence with psychoactive substance-induced mood disorder; F31.81 Bipolar II disorder; F41.9 Anxiety disorder, unspecified; F43.10 Post-traumatic stress disorder, unspecified; G40.909 Epilepsy, unspecified, not intractable, without status epilepticus; G47.00 Insomnia, unspecified; R17 Unspecified jaundice; R60.0 Localized edema; L02.411 Cutaneous abscess of right axilla; Z87.820 Personal history of traumatic brain injury; Z91.410 Personal history of adult physical and sexual abuse; Z91.51 Personal history of suicidal behavior; Z59.00 Homelessness unspecified; Z56.0 Unemployment, unspecified
CPT/HCPCS: 36415; 80053; 85027; 86780; 87389; 90686; C9803; G0008; J0735; Q0162; U0003; U0005

== ENCOUNTER 2021-08-01 19:46 | Emergency (ER) | payer OTHER ==
[2021-08-01 21:35] VITALS: PULSE 82; BMI 16.7
[2021-08-01 22:32] LABS: COCAINE, UR NEGATIVE (NEGATIVE); METHADONE, UR NEGATIVE (NEGATIVE); OPIATES, URI NEGATIVE (NEGATIVE); URINE BENZODIAZEPINES NEGATIVE (NEGATIVE)
[2021-08-01 22:33] LABS: PHENCYCLIDINE,URINE NEGATIVE (NEGATIVE); URINE BARBITURATES NEGATIVE (NEGATIVE)
[2021-08-01 22:51] LABS: URINE AMPHETAMINES POSITIVE (NEGATIVE)
[2021-08-01 22:53] LABS: BASO % 0.6 % (0-2.0); EOS % 1.3 % (0-4.5); HEMATOCRIT 34.2 % (35.4-49); HEMOGLOBIN 11.5 GM/dL (11.7-16.9); LYMPH % 24.9 % (8-40); MCH 28.7 pg (25.7-33.7); MCHC 33.6 g/dl (32.0-35.9); MEAN CELL VOLUME 85.6 fl (80-96); MEAN PLT VOLUME 7.7 fl (7.5-11.1); MONO % 6.5 % (3.8-10.2); NEUT % 66.7 % (42.8-82.8); PLATELET COUNT 270 10^3/uL (134-434); RBC 3.99 M/mm3 (4.00-5.60); RDW 14.7 % (11.9-15.9); WHITE BLOOD COUNT 6.4 K/mm3 (4.0-10.0)
[2021-08-01 23:19] LABS: CALCIUM 8.1 mg/dL (8.5-10.1)
[2021-08-01 23:20] LABS: ALBUMIN 3.1 g/dl (3.4-5.0); BLOOD UREA NITROGEN 11.8 mg/dL (7-18)
[2021-08-01 23:23] LABS: CREATININE 0.7 mg/dL (0.55-1.3)
[2021-08-01 23:24] LABS: BILIRUBIN,TOTAL 0.4 mg/dL (0.2-1)
[2021-08-02 00:29] VITALS: BP 113/68; TEMP 98.1
== END 2021-08-02 00:31 | disposition home or self-care (01) ==
LOC: JER 19:46
DX: R53.1 Weakness (principal)
CPT/HCPCS: 36415; 80053; 80307; 85025; 99284-25

== ENCOUNTER 2023-03-29 17:01 | Inpatient (IN) | payer OTHER ==
[2023-03-29 17:37] VITALS: BMI 21.4
[2023-03-29] MEDS ORDERED: NALOXONE HCL (KLOXXADO) 8 MG SPRAY NS PRN (19:47)
[2023-03-29] MEDS ORDERED: DICYCLOMINE HCL 10 MG CAPSULE PO PRN (19:47)
[2023-03-29] MEDS ORDERED: MAG HYDROX/AL HYDROX/SIMETH 30 ML UNIT-DOSE CUP PO PRN (19:47)
[2023-03-29] MEDS ORDERED: IBUPROFEN 400 MG TABLET (FP) PO PRN (19:47)
[2023-03-29] MEDS ORDERED: P-EPHED 60MG/TRIPROLIDI 2.5MG TABLET PO PRN (19:47)
[2023-03-29] MEDS ORDERED: MAGNESIUM HYDROX 2400MG/30ML ORAL SUSPENSION 30 ML CUP PO PRN (19:47)
[2023-03-29] MEDS ORDERED: ONDANSETRON *ODT* 4 MG TABLET SL PRN (19:47)
[2023-03-29] MEDS ORDERED: POLYETHYLENE GLYCOL (HEALTHYLAX) 3350 17 GM PACKET PO PRN (19:47)
[2023-03-29] MEDS ORDERED: LOPERAMIDE HCL 2 MG CAPSULE PO PRN (19:47)
[2023-03-29] MEDS ORDERED: guaiFENesin 600 MG TABLET.ER (FP) PO PRN (19:47)
[2023-03-29] MEDS ORDERED: IBUPROFEN 600 MG TABLET (FP) PO PRN (19:47)
[2023-03-29] MEDS ORDERED: BISMUTH SUBSALICYLATE 524 MG/30 ML PO PRN (19:47)
[2023-03-29] MEDS ORDERED: BENZONATATE 200 MG CAPSULE PO PRN (19:47)
[2023-03-29] MEDS ORDERED: NALOXONE HCL 0.4 MG/ML VIAL IM PRN (19:47)
[2023-03-29] MEDS ORDERED: BENZOCAINE/MENTHOL (CHLORASEPTIC ) LOZENGE MM PRN (19:47)
[2023-03-29] MEDS: METHOCARBAMOL 500 MG TABLET PO PRN (20:48)
[2023-03-29] MEDS: hydrOXYzine PAMOATE 25 MG CAPSULE (FP) PO PRN (20:48)
[2023-03-29] MEDS: THIAMINE HCL 100 MG TABLET (FP) PO SCH (21:06)
[2023-03-29] MEDS: MELATONIN 5 MG TABLETS PO SCH (21:06)
[2023-03-30] MEDS: PRENATAL VITAMINS W/ FOLIC ACID TABLET (FP) PO SCH (10:59)
[2023-03-30 11:53] LABS: POTASSIUM 4.4 mmol/L (3.5-5.1)
[2023-03-30 11:56] LABS: ALBUMIN 3.2 g/dl (3.4-5.0); CALCIUM 8.7 mg/dL (8.5-10.1); HEMATOCRIT 34.6 % (35.4-49); MCH 25.9 pg (25.7-33.7); MCHC 31.8 g/dl (32.0-35.9); MEAN CELL VOLUME 81.5 fl (80-96); PLATELET COUNT 254 10^3/uL (134-434); RBC 4.24 M/mm3 (4.00-5.60); RDW 14.3 % (11.9-15.9); WHITE BLOOD COUNT 4.9 K/mm3 (4.0-10.0)
[2023-03-30 11:59] LABS: CREATININE 0.6 mg/dL (0.55-1.3)
[2023-03-30 12:01] LABS: BILIRUBIN,TOTAL 0.8 mg/dL (0.2-1); TOT PROT 6.9 g/dl (6.4-8.2)
[2023-03-30] MEDS ORDERED: TRIMETHOBENZAMIDE HCL 200MG/2ML INJ IM ONE (18:48)
[2023-03-30] MEDS ORDERED: diazePAM 5 MG TABLET PO ONE (18:48)
[2023-03-30] MEDS ORDERED: cloNIDine HCL 0.1 MG TABLET PO PRN (18:48)
[2023-03-30] MEDS ORDERED: methaDONE HCL 10 MG TABLET (FOR DETOX USE ONLY) PO ONE (19:00)
[2023-03-30] MEDS: MELATONIN 5 MG TABLETS PO SCH (23:23)
[2023-03-30] MEDS: THIAMINE HCL 100 MG TABLET (FP) PO SCH (23:24)
[2023-03-30] MEDS: diazePAM 5 MG TABLET PO SCH (23:24)
[2023-03-31] MEDS: diazePAM 5 MG TABLET PO SCH ×4 (05:49→23:06)
[2023-03-31] MEDS: METHOCARBAMOL 500 MG TABLET PO PRN (10:49)
[2023-03-31] MEDS: PRENATAL VITAMINS W/ FOLIC ACID TABLET (FP) PO SCH (10:49)
[2023-03-31] MEDS: hydrOXYzine PAMOATE 25 MG CAPSULE (FP) PO PRN (14:28)
[2023-03-31] MEDS: diazePAM 5 MG TABLET PO PRN ×2 (14:28→19:46)
[2023-03-31] MEDS: MELATONIN 5 MG TABLETS PO SCH (23:06)
[2023-03-31] MEDS: THIAMINE HCL 100 MG TABLET (FP) PO SCH (23:07)
[2023-04-01] MEDS ORDERED: diazePAM 5 MG TABLET PO SCH (06:00)
[2023-04-01 09:10] VITALS: BP 117/58; PULSE 63; RESP 18; TEMP 96.9
[2023-04-01] MEDS: PRENATAL VITAMINS W/ FOLIC ACID TABLET (FP) PO SCH (09:52)
[2023-04-01] MEDS: hydrOXYzine PAMOATE 25 MG CAPSULE (FP) PO PRN (09:53)
[2023-04-01] MEDS: diazePAM 5 MG TABLET PO PRN (09:53)
[2023-04-01] MEDS: METHOCARBAMOL 500 MG TABLET PO PRN (09:53)
[2023-04-01] MEDS ORDERED: methaDONE HCL 10 MG TABLET (FOR DETOX USE ONLY) PO ONE (10:00)
[2023-04-02] MEDS ORDERED: diazePAM 5 MG TABLET PO SCH (06:00)
[2023-04-03] MEDS ORDERED: diazePAM 5 MG TABLET PO ONE (06:00)
[2023-04-03] MEDS ORDERED: methaDONE HCL 10 MG TABLET (FOR DETOX USE ONLY) PO ONE (10:00)
== END 2023-04-01 11:58 | disposition left against medical advice (07) | DRG 770 ==
LOC: YASAS 17:01 → UNDOADMIN 20:23 → Y6N 20:23 → UNDODISIN 04-01 11:58
PROVIDERS: ADMIT Allergy & Immunology; ATTEND Surgery
PROC: HZ2ZZZZ Detoxification Services for Substance Abuse Treatment (ICD-10-PCS; principal; 2023-03-29)
DX: F11.23 Opioid dependence with withdrawal (principal); F13.230 Sedative, hypnotic or anxiolytic dependence with withdrawal, uncomplicated; F14.20 Cocaine dependence, uncomplicated; F12.10 Cannabis abuse, uncomplicated; F31.81 Bipolar II disorder; F41.9 Anxiety disorder, unspecified; F41.0 Panic disorder [episodic paroxysmal anxiety]; Z88.6 Allergy status to analgesic agent; Z91.013 Allergy to seafood
CPT/HCPCS: 36415; 80053; 85027; 86780; 87635; 87811